=== PATIENT | male | born 1935 | race Caucasian/White ===

== ENCOUNTER 2018-08-10 21:24 | Inpatient (IN) | payer MEDICARE ==
[~2018-08-10] VITALS: Ht 182.9 cm; Wt 92.5 kg
[~2018-08-10 21:24] MED LIST: ABAT250V; ACET650SUP PR; ALBU.083IS IH; ALBU90OI6 INH; ALBUIS INH; AMOCLA875 PO; ASPI81CH PO; ATOR20 PO; BUDE6HFA INH; CAPSAICIN 0.025%; CILO100 PO; CLIN150 PO; CLOP75 PO; Carbidopa-Levo1 EACH PO; DIGO.125 PO; ENOX100I SUBQ; FURO20 PO; HYDCHL25 PO; Inderal 20 mg T20 MG PO; LEVCAR10 PO; LEVSOD150 PO; LOSA50 PO; METO25; METO25ER PO; METO50 PO; MORPHINE; MUPI2TO TOP; Norco 10-325 T1 EACH PO; POTCHL10ER PO; PROP10 PO; RANI150 PO; SALS500 PO; Symbicort 16010.2 GM INH; TIOT18 IH; TIOT18 INH; VANICREAM; WARF5 PO; XARELTO10 MG PO; XARELTO20 MG; XARELTO20 MG PO; ZOFRAN INJ; ZOLP5 PO
[2018-08-10 22:07] LABS: BASOPHILS ABSOLUTE AUTO 0.02 K/mm3 (0.00-0.23); BASOPHILS PERCENT AUTO 0 % (0-2); EOSINOPHILS ABSOLUTE AUTO 0.04 K/mm3 (0.00-0.68); EOSINOPHILS PERCENT AUTO 1 % (0-6); Hematocrit 36.3 % (37.0-53.0); Hemoglobin 11.3 g/dL (13.5-17.5); IMMATURE GRAN ABSOLUTE AUTO 0.02 K/mm3 (0.00-0.10); IMMATURE GRAN PERCENT AUTO 0 % (0-1); LYMPHOCYTES ABSOLUTE AUTO 0.38 K/mm3 (0.84-5.20); LYMPHOCYTES PERCENT AUTO 5 % (21-46); MONOCYTES ABSOLUTE AUTO 0.64 K/mm3 (0.16-1.47); MONOCYTES PERCENT AUTO 8 % (4-13); Mean Corpuscular HGB 29.5 pg (26.0-34.0); Mean Corpuscular HGB Conc 31.1 g/dL (31.5-36.5); Mean Corpuscular Volume 95 fL (80-100); Mean Platelet Volume 9.1 fL (9.1-12.4); NEUTROPHILS ABSOLUTE AUTO 6.68 K/mm3 (1.96-9.15); NEUTROPHILS PERCENT AUTO 86 % (41-73); Platelet Count 174 K/mm3 (150-400); RDW Coefficient Variation 14.7 % (11.7-14.2); RDW Standard Deviation 50.9 fL (35.1-46.3); Red Blood Cell Count 3.83 M/mm3 (4.30-5.90); White Blood Cell Count 7.78 K/mm3 (4.00-11.30)
[2018-08-10 22:44] LABS: Alanine Aminotransfer (ALT/SGP 15 U/L (12-78); Albumin, Blood 3.3 g/dL (3.4-5.0); Albumin/Globulin Ratio 0.8 (0.8-1.8); Alk Phos 94 U/L (50-136); Anion Gap 7 mmol/L (6-16); Aspartate Aminotrans (AST/SGOT 23 U/L (12-37); Bilirubin, Total 0.7 mg/dL (0.1-1.0); Blood Urea Nitrogen 13 mg/dL (8-24); Bun/Creatinine Ratio 17.5 (12.0-20.0); CO2, Blood 29 mmol/L (21-32); Calcium, Blood 8.9 mg/dL (8.5-10.1); Chloride, Blood 99 mmol/L (98-108); Creatinine, Blood 0.74 mg/dL (0.60-1.20); Globulin, Blood 4.3 g/dL (2.2-4.0); Glomerular Filtration Rate >60 (60-); Glucose, Blood 105 mg/dL (70-99); Potassium, Blood 4.3 mmol/L (3.5-5.5); Sodium, Blood 135 mmol/L (136-145); Total Protein, Blood 7.6 g/dL (6.4-8.2); Troponin I 0.017 ng/mL (0.000-0.040)
[2018-08-10 23:54] LABS: International Normalized Ratio 1.45; Prothrombin Time Results 14.9 Sec (9.7-11.5)
[2018-08-11] MEDS ORDERED: ALLO300 PO (01:59)
[2018-08-11] MEDS ORDERED: VITAMIN D3400 UNIT PO (02:01)
[2018-08-11] MEDS ORDERED: FURO20 PO (02:02)
[2018-08-11] MEDS ORDERED: METO100ER PO (02:02)
[2018-08-11] MEDS ORDERED: LIDOCAINE1 EACH TOP (02:03)
[2018-08-11] MEDS ORDERED: ONE DAILY COMP1 EACH PO (02:06)
[2018-08-11] MEDS ORDERED: POTCHL10ER PO (02:07)
--- NOTE | 2018-08-11 06:33 | NUR ---
SHIFT SUMMARY PT RESTING IN ROOM COMFORTABLY. NO ACUTE CHANGES IN STATUS SINCE PT ARRIVAL TO UNIT. RESP EVEN UNLABORED ON 6L HUMIDIFIED NC. DENIES CP, NO SOB AT REST. WOUNDS TO BLE DRESSED WITH NONADHEARENT PADS AND KERLEX. PT VERY EEK. CALLS APPROPRIATELY. CALL LIGHT WITHIN REACH OF PT.
--- NOTE | 2018-08-11 08:49 | NUR ---
AM NOTE. ASSUMED CARE OF PT APROX 1900, PT IS A&Ox4, PLEASENT AND COOPERATIVE WITH CARE. PT WAS ADMITTED DUE TO RESP FAILURE W/HYPOXIA. PT IS CURRENTLY ON 7L HIGH FLOW NC WITH SATS AT 93%, RESPIRATIONS ARE EVEN AND UNLABORED AT THIS TIME. TELE INTACT, AFIB IN THE 90'S PER CRITICAL CARE NURSE SPECIALIST, PT'S BP 99/56, PT'S AM METOPROLOL WAS HELD. TRACE EDEMA NOTED TO THE PT'S BLLE, PT HAS CHRONIC WOUNDS TO BLLE WELL, THESE ARE BEING TREATED AT THE [facility]. L/S COARSE AND WHEEZES T/O AND DIM IN THE BASES. BT PRESENT AND HYPERACTIVE, ABD IS SOFT AND NONTENDER TO PALP. CALL LIGHT IN REACH, BED IS LOCKED AND LOW WILL CONTINUE TO MONITOR.
[2018-08-11 10:12] LABS: Hematocrit 35.6 % (37.0-53.0); Hemoglobin 11.3 g/dL (13.5-17.5); Mean Corpuscular HGB Conc 31.7 g/dL (31.5-36.5); Mean Platelet Volume 9.4 fL (9.1-12.4); Platelet Count 172 K/mm3 (150-400); RDW Coefficient Variation 14.7 % (11.7-14.2); RDW Standard Deviation 49.1 fL (35.1-46.3)
[2018-08-11 10:14] LABS: Adenovirus Not Detected (NOT DETECT); Coronavirus 229E Not Detected (NOT DETECT); Coronavirus HKU1 Not Detected (NOT DETECT); Coronavirus NL63 Not Detected (NOT DETECT); Coronavirus OC43 Not Detected (NOT DETECT); Human Metapneumovirus Not Detected (NOT DETECT); Human Rhinovirus/Enterovirus Not Detected (NOT DETECT); Influenza A Not Detected (NOT DETECT); Influenza A/2009-H1 Not Detected (NOT DETECT); Influenza A/H1 Not Detected (NOT DETECT); Influenza A/H3 Not Detected (NOT DETECT)
[2018-08-11 10:14] LABS: Mean Corpuscular Volume 91 fL (80-100)
[2018-08-11 10:15] LABS: Bordetella pertussis Not Detected (NOT DETECT); Chlamydophila pneumoniae Not Detected (NOT DETECT); Influenza B Not Detected (NOT DETECT); Mycoplasma pneumoniae Not Detected (NOT DETECT); Parainfluenza Virus 1 Not Detected (NOT DETECT); Parainfluenza Virus 2 Not Detected (NOT DETECT); Parainfluenza Virus 3 Not Detected (NOT DETECT); Parainfluenza Virus 4 Not Detected (NOT DETECT); Respiratory Syncytial Virus Not Detected (NOT DETECT)
[2018-08-11 10:36] LABS: Alanine Aminotransfer (ALT/SGP 10 U/L (12-78); Albumin, Blood 3.1 g/dL (3.4-5.0); Albumin/Globulin Ratio 0.7 (0.8-1.8); Alk Phos 80 U/L (50-136); Anion Gap 13 mmol/L (6-16); Aspartate Aminotrans (AST/SGOT 24 U/L (12-37); Blood Urea Nitrogen 12 mg/dL (8-24); Bun/Creatinine Ratio 16.2 (12.0-20.0); CO2, Blood 22 mmol/L (21-32); Calcium, Blood 8.8 mg/dL (8.5-10.1); Chloride, Blood 100 mmol/L (98-108); Creatinine, Blood 0.74 mg/dL (0.60-1.20); Globulin, Blood 4.2 g/dL (2.2-4.0); Glomerular Filtration Rate >60 (60-); Glucose, Blood 192 mg/dL (70-99); Potassium, Blood 4.7 mmol/L (3.5-5.5); Sodium, Blood 135 mmol/L (136-145); Total Protein, Blood 7.3 g/dL (6.4-8.2)
--- NOTE | 2018-08-11 14:47 | NUR ---
REPORT REC'D FROM BUSTER HARDING. PT UP IN CHAIR WATCHING TV. SCHED MED GIVEN. PT STATES SHOULD BE BACK SOON WITH HIS HEARING AIDS. C0NT TO MONITOR.
--- NOTE | 2018-08-11 17:52 | NUR ---
Shift Summary Assumed care of pt at approx 1600 after receiving report from Shakira GOINS. Pt currently on 5L O2 NC. Denies any SOB at this time. Moist cough heard. Tele shows afib in the low 100's. Pt denies any acute complaints or events t/o the shift. Currently resting in bed with call light within reach. Denies any further questions, complaints or requests at this time. Will continue to monitor until report is given to erum GOINS.
[2018-08-12 03:46] LABS: BASOPHILS PERCENT AUTO 0 % (0-2); EOSINOPHILS PERCENT AUTO 0 % (0-6); Hematocrit 30.1 % (37.0-53.0); Hemoglobin 9.3 g/dL (13.5-17.5); IMMATURE GRAN ABSOLUTE AUTO 0.01 K/mm3 (0.00-0.10); IMMATURE GRAN PERCENT AUTO 0 % (0-1); LYMPHOCYTES PERCENT AUTO 4 % (21-46); MONOCYTES ABSOLUTE AUTO 0.15 K/mm3 (0.16-1.47); MONOCYTES PERCENT AUTO 3 % (4-13); Mean Corpuscular HGB Conc 30.9 g/dL (31.5-36.5); Mean Corpuscular Volume 94 fL (80-100); Mean Platelet Volume 9.3 fL (9.1-12.4); NEUTROPHILS ABSOLUTE AUTO 4.37 K/mm3 (1.96-9.15); NEUTROPHILS PERCENT AUTO 92 % (41-73); Platelet Count 112 K/mm3 (150-400); RDW Coefficient Variation 14.6 % (11.7-14.2); RDW Standard Deviation 50.9 fL (35.1-46.3); Red Blood Cell Count 3.21 M/mm3 (4.30-5.90); White Blood Cell Count 4.73 K/mm3 (4.00-11.30)
[2018-08-12 04:07] LABS: Alanine Aminotransfer (ALT/SGP 12 U/L (12-78); Albumin, Blood 2.9 g/dL (3.4-5.0); Albumin/Globulin Ratio 0.8 (0.8-1.8); Alk Phos 61 U/L (50-136); Anion Gap 9 mmol/L (6-16); Aspartate Aminotrans (AST/SGOT 17 U/L (12-37); Bilirubin, Total 0.9 mg/dL (0.1-1.0); Blood Urea Nitrogen 20 mg/dL (8-24); Bun/Creatinine Ratio 25.1 (12.0-20.0); CO2, Blood 26 mmol/L (21-32); Chloride, Blood 100 mmol/L (98-108); Globulin, Blood 3.5 g/dL (2.2-4.0); Glomerular Filtration Rate >60 (60-); Glucose, Blood 140 mg/dL (70-99); Magnesium, Blood 1.5 mg/dL (1.6-2.4); Potassium, Blood 4.5 mmol/L (3.5-5.5); Sodium, Blood 135 mmol/L (136-145); Total Protein, Blood 6.4 g/dL (6.4-8.2)
--- NOTE | 2018-08-12 05:51 | NUR ---
SHIFT SUMMARY: PATIENT COUGH BECOMING MORE PRODUCTIVE, PATIENT USING FLUTTER VALVE AND STATING HE FEELS IT HELPS HIM WITH STRONGER COUGHING. VSS, CALL LIGHT WITHIN REACH, BED LOW AND LOCKED, WBC'S IMPROVING.
--- NOTE | 2018-08-12 08:05 | NUR ---
Assumed Care: Assumed care of pt at approx 0700. VSS. In no apparent sign of distress. Pt is A&Ox4. See shift assessment for detailed assessment. Pt receiving breathing treatment when entering room. Moved to chair once completed for breakfast. Pt asking if he will be allowed to go home today. States that dressings to BLE were changed yesterday. Pt denies any acute complaints or requests at this time. Will continue to monitor.
--- NOTE | 2018-08-12 12:55 | NUR ---
ECHOCARDIOGRAM COMPLETE
--- NOTE | 2018-08-12 18:18 | NUR ---
Shift Summary No acute changes since initial shift assessment. VSS. In no apparent sign of distress. Pt is A&Ox4. Calls appropriately and repositions self. Denies any pain at this time. Pt has remained on 6L o2 NC. Reports that breathing is about the same t/o the shift and has not had any respiratory distress or acute events t/o the shift. Pt denies any acute events or complaints t/o the shift. No acute events on tele - Afib in the 110's at this time. Tolerated shower well today. Pt has been up to chair for meals. C/o dry nose and noticed some blood after blowing nose. Pt currently resting in bed with call light within reach. Denies any further questions, complaints or requests at this time. Will continue to monitor until report is given to erum GOINS.
--- NOTE | 2018-08-13 05:34 | NUR ---
SHIFT SUMMARY: PATIENT COUGH VERY PRODUCTIVE, VSS, NO ISSUES NOTED OTHER THAN INTERRUPTED SLEEP D/T COUGH. CALL LIGHT WITHIN REACH, BED LOW AND LOCKED.
--- NOTE | 2018-08-13 08:05 | NUR ---
Assumed Care: Assumed care of pt at approx 0700. VSS. In no apparent sign of distress. Pt is A&Ox4. Calls appropriately and repositions self. Pt states that he is feeling much better this AM, and is optimistic that he might potentially discharge home tomorrow. Sitting up and eating breakfast at this time. Denies any acute complaints or events this AM. See shift assessment for detailed assessment. Will continue to monitor. Call light within reach and bed in low position.
--- NOTE | 2018-08-13 18:12 | NUR ---
Shift Summary No acute changes since initial shift assessment. VSS. In no apparent sign of distress. Pt has remained on 7L O2 NC today and still becomes dyspnic with exertion. Pt repositions self. Calls appropriately. Wheezes in lungs are more mild and improved t/o the day. No acute changes or events on tele. Pt deneis any acute complaints or events t/o the shift. Currently sitting up in chair eating dinner. Declined shower today. Will continue to monitor until report is given to erum GOINS.
--- NOTE | 2018-08-13 22:20 | NUR ---
PCU NIGHTSHIFT ASSUMED CARE OF PT APPROX. 1900. PT A&O X4. ASSESSMENT COMPLETED. VITAL SIGNS STABLE. HEART RHYTHM A. FIB IN 100'S. 7L OXYGEN IN PLACE VIA N.C. WITH SATS IN 90'S PT DENIES SOB AT THIS TIME. BLE SKIN WARM AND RED. BANAGED IN PLACE BILATERAL FEET. PT AND PREVIOUS RN REPORT THSE BANADAGES CHANGES THIS EVENING 08/13. PULSES FAINT BILAT FEET AND PT REPORTS N&T IN BLE AND REPORTS THIS TO BE CHRONIC. PT UP IN CHAIR THIS ENENING. AFTER TAKING EVENING MEDICAITONS PT USE FWW AND ONE PERSON ASSIST BACK TO BED AND TOLERATED WELL. PT REPORTS BEING LESS SHORT OF BREATH WITH THIS THAN PREVIOUS TIMES. BED IN LOW POSITION, CALL LIGHT IN REACH AND PT DENIES ANY NEEDS AT THIS TIME. WILL CONTINUE TO MONITOR.
[2018-08-14 03:52] LABS: BASOPHILS PERCENT AUTO 0 % (0-2); EOSINOPHILS PERCENT AUTO 0 % (0-6); Hematocrit 28.5 % (37.0-53.0); Hemoglobin 8.8 g/dL (13.5-17.5); IMMATURE GRAN ABSOLUTE AUTO 0.02 K/mm3 (0.00-0.10); IMMATURE GRAN PERCENT AUTO 1 % (0-1); LYMPHOCYTES ABSOLUTE AUTO 0.12 K/mm3 (0.84-5.20); LYMPHOCYTES PERCENT AUTO 3 % (21-46); MONOCYTES ABSOLUTE AUTO 0.13 K/mm3 (0.16-1.47); MONOCYTES PERCENT AUTO 4 % (4-13); Mean Corpuscular HGB 29.1 pg (26.0-34.0); Mean Corpuscular HGB Conc 30.9 g/dL (31.5-36.5); Mean Corpuscular Volume 94 fL (80-100); Mean Platelet Volume 9.5 fL (9.1-12.4); NEUTROPHILS ABSOLUTE AUTO 3.27 K/mm3 (1.96-9.15); NEUTROPHILS PERCENT AUTO 92 % (41-73); Platelet Count 110 K/mm3 (150-400); RDW Coefficient Variation 14.5 % (11.7-14.2); RDW Standard Deviation 50.3 fL (35.1-46.3); Red Blood Cell Count 3.02 M/mm3 (4.30-5.90); White Blood Cell Count 3.54 K/mm3 (4.00-11.30)
[2018-08-14 04:16] LABS: Alanine Aminotransfer (ALT/SGP 13 U/L (12-78); Albumin, Blood 3.1 g/dL (3.4-5.0); Albumin/Globulin Ratio 0.9 (0.8-1.8); Alk Phos 54 U/L (50-136); Anion Gap 10 mmol/L (6-16); Aspartate Aminotrans (AST/SGOT 34 U/L (12-37); Bilirubin, Total 0.9 mg/dL (0.1-1.0); Blood Urea Nitrogen 26 mg/dL (8-24); Bun/Creatinine Ratio 29.3 (12.0-20.0); CO2, Blood 31 mmol/L (21-32); Chloride, Blood 98 mmol/L (98-108); Creatinine, Blood 0.89 mg/dL (0.60-1.20); Globulin, Blood 3.5 g/dL (2.2-4.0); Glomerular Filtration Rate >60 (60-); Glucose, Blood 125 mg/dL (70-99); Magnesium, Blood 1.6 mg/dL (1.6-2.4); Potassium, Blood 3.6 mmol/L (3.5-5.5); Sodium, Blood 139 mmol/L (136-145); Total Protein, Blood 6.6 g/dL (6.4-8.2)
--- NOTE | 2018-08-14 05:41 | NUR ---
SHIFT SUMMARY PT PLEASANT, COOPERATIVE AND COOPERATIVE. PT REMAINS A&O X4. VITAL SIGNS STABLE. HEART RHYTHM REMAINS A. FIB WITH HEART RATE AROUND 100'S. PT ASSESSMENT FINDINGS REMAIN UNCHANGED FROM START OF SHIFT. PT REMAINED IN BED FOR DURATION OF SHIFT. PT DENIES SHORTNESS OF BREATH. PT USES URINAL NEEDED. BED IN LOW POSTION, CALL LIGHT IN REACH AND PT DENIES ANY NEEDS AT THIS TIME.
--- NOTE | 2018-08-14 06:04 | NUR ---
ADDITION TO SHIFT SUMMARY 7L OXYGEN VIA HIGH FLOW REMAINS IN PLACE, WITH SATS 94-96. PT DENIES ANY NEEDS WILL CONTINUE TO MONITOR UNTIL HANDOFF TO DAYSHIFT RN.
--- NOTE | 2018-08-14 13:04 | NUR ---
Charlie has been out of bed,sitting up in a chair since breakfast time. He has been cheerful, without complaints, and states that he is feeling much better. States that he will probably get to go home tomorrow. Dysnpea with exertion, but able to stand and use the bedside commode, and talk in full sentences while at rest sitting up in the chair during his meals. His oxygen was weaned from 7 l/min to 6 l/min at 11:30 am.
--- NOTE | 2018-08-14 18:35 | NUR ---
summary Today oxygen was able to be titrated down to 5 l/min, n.c. delivery. The pt has been using his flutter valve, and coughing frequently, but having difficulty expectorating. Lung sounds noted: crackles and wheezing, diminished throughout except when auscultated posteriorly in bases. Has been sitting up in the chair all day, occasionally elevating his legs on the footstool over 2 pillows. Good appetite, voiding and also had a small bowel movement as well.
--- NOTE | 2018-08-14 22:22 | NUR ---
PCU NIGHTSHIFT ASSUMED CARE OF PT APPROX. 1900. PT A&O X4. ASSESSMENT COMPLETED. VITAL SIGNS STABLE. HEART RATE RHYTHM A. FIB. WITH HEART RATE 100'S-115. EDEMA BLE +2. NUMBNESS AND TINGLING BLE AND BILAT. BELOW THEN KNEE SKIN IS REDDENED AND WARM TO TOUCH. DRESSING REMAIN IN PLACE ON ULCERS ON BILAT FEET. DAYSHIFT RN REPORTS CHANGING THESE 08/14/18. PT UP IN CHAIR AT BEGININNG OF SHIFT. REMAINED HERE UNTIL AFTER RECIEVING EVENING MEDICATIONS. THEN PT WAS ABLE TO AMBULATE TO BED W/ FWW AND ONE PERSON ASSIST. PT BACK IN BED. BED IN LOW POSITION, CALL LIGHT IN REACH AND PT DENIES ANY NEEDS AT THIS TIME. WILL CONTINUE TO MONITOR.
[2018-08-15 04:21] LABS: BASOPHILS PERCENT AUTO 0 % (0-2); EOSINOPHILS PERCENT AUTO 0 % (0-6); Hematocrit 29.3 % (37.0-53.0); Hemoglobin 8.9 g/dL (13.5-17.5); IMMATURE GRAN ABSOLUTE AUTO 0.01 K/mm3 (0.00-0.10); IMMATURE GRAN PERCENT AUTO 0 % (0-1); LYMPHOCYTES ABSOLUTE AUTO 0.16 K/mm3 (0.84-5.20); LYMPHOCYTES PERCENT AUTO 5 % (21-46); MONOCYTES ABSOLUTE AUTO 0.33 K/mm3 (0.16-1.47); MONOCYTES PERCENT AUTO 10 % (4-13); Mean Corpuscular HGB 28.7 pg (26.0-34.0); Mean Corpuscular HGB Conc 30.4 g/dL (31.5-36.5); Mean Corpuscular Volume 95 fL (80-100); Mean Platelet Volume 9.3 fL (9.1-12.4); NEUTROPHILS ABSOLUTE AUTO 2.95 K/mm3 (1.96-9.15); NEUTROPHILS PERCENT AUTO 86 % (41-73); Platelet Count 112 K/mm3 (150-400); RDW Coefficient Variation 14.3 % (11.7-14.2); RDW Standard Deviation 49.7 fL (35.1-46.3); White Blood Cell Count 3.45 K/mm3 (4.00-11.30)
[2018-08-15 04:42] LABS: Alanine Aminotransfer (ALT/SGP 16 U/L (12-78); Albumin, Blood 3.1 g/dL (3.4-5.0); Albumin/Globulin Ratio 0.9 (0.8-1.8); Alk Phos 49 U/L (50-136); Anion Gap 8 mmol/L (6-16); Aspartate Aminotrans (AST/SGOT 38 U/L (12-37); Bilirubin, Total 0.9 mg/dL (0.1-1.0); Blood Urea Nitrogen 27 mg/dL (8-24); Bun/Creatinine Ratio 31.2 (12.0-20.0); CO2, Blood 35 mmol/L (21-32); Chloride, Blood 97 mmol/L (98-108); Creatinine, Blood 0.87 mg/dL (0.60-1.20); Globulin, Blood 3.4 g/dL (2.2-4.0); Glomerular Filtration Rate >60 (60-); Glucose, Blood 120 mg/dL (70-99); Magnesium, Blood 1.6 mg/dL (1.6-2.4); Potassium, Blood 3.2 mmol/L (3.5-5.5); Sodium, Blood 140 mmol/L (136-145); Total Protein, Blood 6.5 g/dL (6.4-8.2)
--- NOTE | 2018-08-15 05:34 | NUR ---
SHIFT SUMMARY PT PLEASANT, COOPERATIVE AND USES CALL LIGHT APPROPRIATELY. PT REMAINS A&O X4. VITAL SIGNS STABLE. 5L OXYGEN VIA N.C. REMAINS IN PLACE WITH SATS IN 90'S. HEART RHYTHM REMAINS A. FIB WITH HEART RATE 100-115. PT ASSESSMENT FINDINGS REMAIN UNCHANGED FROM START OF SHIFT. PT WAS ABLE TO REST FOR MOST OF SHIFT. PT DENIES SHORTNESS OF BREATH. PT USES URINAL NEEDED. BED IN LOW POSTION, CALL LIGHT IN REACH AND PT DENIES ANY NEEDS AT THIS TIME. WILL CONTINUE TO MONITOR UNTIL HAND OFF TO DAYSHIFT RN.
--- NOTE | 2018-08-15 09:44 | NUR ---
WOUND CARE COMPLETED: Old dressings were removed. Old serous drainage noted dried on alginate dressings of right leg, pedal surface, left foot toes, and left leg lateral surface. Amount of drainage noted was small. Wounds were cleaned with skintegrity, patted dry with sterile 4x4 gauze. Alginate rope was applied in between the toes of the left foot. Alginate pads were also applied to the ulcer of the right foot pedal surface and left leg lateral surface. All areas were secured with kerlix and then with tubular stockinette. Bariatric non skid socks were then put back on the pt's feet. He states no pain other than the burning (chronic) of his lower legs, for which lidocaine ointment was applied before the new dressings were applied.
--- NOTE | 2018-08-15 09:50 | NUR ---
Dr. Douglass here, explaining very well to the patient his diagnosis, the treatment plan, and discharge instructions. Pt verbalized understanding.
[2018-08-15] MEDS ORDERED: METO25ER PO (10:58)
[2018-08-15] MEDS ORDERED: FAMO20 PO (11:00)
[2018-08-15] MEDS ORDERED: GUAI600T33 PO (11:03)
[2018-08-15] MEDS ORDERED: DELTASONE20 MG PO (11:04)
[2018-08-15] MEDS ORDERED: SACC250C PO (11:05)
[2018-08-15] MEDS ORDERED: Augmentin 875-1 EACH PO (11:06)
[2018-08-15] MEDS ORDERED: ALBU3IS INH (11:07)
[2018-08-15] MEDS ORDERED: FURO20 PO (12:21)
[2018-08-15] MEDS ORDERED: TORSE20 PO (12:32)
== END 2018-08-15 13:13 | disposition home or self-care (01) | DRG 871 ==
LOC: ER 21:24 → PCU 08-11 01:12
PROVIDERS: Emergency Medicine; Internal Medicine; ADMIT Internal Medicine
DX: A41.9 Sepsis, unspecified organism (principal); J69.0 Pneumonitis due to inhalation of food and vomit; J96.21 Acute and chronic respiratory failure with hypoxia; I50.33 Acute on chronic diastolic (congestive) heart failure; J96.22 Acute and chronic respiratory failure with hypercapnia; J44.1 Chronic obstructive pulmonary disease with (acute) exacerbation; R78.81 Bacteremia; J44.0 Chronic obstructive pulmonary disease with (acute) lower respiratory infection; L03.115 Cellulitis of right lower limb; A28.0 Pasteurellosis; J20.9 Acute bronchitis, unspecified; I27.29 Other secondary pulmonary hypertension; K21.9 Gastro-esophageal reflux disease without esophagitis; G20 Parkinson's disease; I10 Essential (primary) hypertension; Z99.81 Dependence on supplemental oxygen; Z79.01 Long term (current) use of anticoagulants; I48.0 Paroxysmal atrial fibrillation; M10.9 Gout, unspecified
CPT/HCPCS: 36415; 71045; 71260; 80053; 83605; 83735; 83880; 84145; 84484; 85025; 85027; 85610; 85730; 87040; 87077; 87486; 87581; 87633; 87798; 92526; 92610; 93005; 93010; 93306; 94640; 94644; 94760; 94762; 96365-59; 96366-59; 96375-59; 97110; 97162; 97166; 97530; 99285-25; J1100; J1940; J1956; J2543; J2930; J3475; Q9967

== ENCOUNTER 2018-11-24 23:08 | Inpatient (IN) | payer MEDICARE ==
[~2018-11-24] VITALS: Ht 182.9 cm; Wt 96.8 kg
[~2018-11-24 23:08] MED LIST changes: +ALBU3IS INH; +ALLO300 PO; +Augmentin 875-1 EACH PO; +DELTASONE20 MG PO; +FAMO20 PO; +GUAI600T33 PO; +LIDOCAINE1 EACH TOP; +METO100ER PO; +ONE DAILY COMP1 EACH PO; +SACC250C PO; +TORSE20 PO; +VITAMIN D3400 UNIT PO
[2018-11-24 23:21] LABS: BASOPHILS ABSOLUTE AUTO 0.03 K/mm3 (0.00-0.23); BASOPHILS PERCENT AUTO 0 % (0-2); EOSINOPHILS ABSOLUTE AUTO 0.01 K/mm3 (0.00-0.68); EOSINOPHILS PERCENT AUTO 0 % (0-6); Hematocrit 28.7 % (37.0-53.0); IMMATURE GRAN ABSOLUTE AUTO 0.04 K/mm3 (0.00-0.10); IMMATURE GRAN PERCENT AUTO 1 % (0-1); LYMPHOCYTES ABSOLUTE AUTO 0.32 K/mm3 (0.84-5.20); LYMPHOCYTES PERCENT AUTO 4 % (21-46); MONOCYTES ABSOLUTE AUTO 0.62 K/mm3 (0.16-1.47); MONOCYTES PERCENT AUTO 7 % (4-13); Mean Corpuscular HGB 28.7 pg (26.0-34.0); Mean Corpuscular HGB Conc 31.4 g/dL (31.5-36.5); Mean Corpuscular Volume 91 fL (80-100); Mean Platelet Volume 9.5 fL (9.1-12.4); NEUTROPHILS ABSOLUTE AUTO 7.32 K/mm3 (1.96-9.15); NEUTROPHILS PERCENT AUTO 88 % (41-73); Platelet Count 138 K/mm3 (150-400); RDW Coefficient Variation 13.8 % (11.7-14.2); RDW Standard Deviation 46.3 fL (35.1-46.3); Red Blood Cell Count 3.14 M/mm3 (4.30-5.90); White Blood Cell Count 8.34 K/mm3 (4.00-11.30)
[2018-11-24 23:39] LABS: Alanine Aminotransfer (ALT/SGP 15 U/L (12-78); Albumin/Globulin Ratio 0.8 (0.8-1.8); Alk Phos 57 U/L (50-136); Anion Gap 8 mmol/L (6-16); Aspartate Aminotrans (AST/SGOT 14 U/L (12-37); Bilirubin, Total 0.8 mg/dL (0.1-1.0); Blood Urea Nitrogen 17 mg/dL (8-24); Bun/Creatinine Ratio 13.9 (12.0-20.0); CO2, Blood 29 mmol/L (21-32); Calcium, Blood 8.7 mg/dL (8.5-10.1); Chloride, Blood 99 mmol/L (98-108); Creatinine, Blood 1.22 mg/dL (0.60-1.20); Globulin, Blood 3.6 g/dL (2.2-4.0); Glomerular Filtration Rate >60 (60-); Glucose, Blood 101 mg/dL (70-99); Potassium, Blood 3.6 mmol/L (3.5-5.5); Sodium, Blood 136 mmol/L (136-145); Total Protein, Blood 6.6 g/dL (6.4-8.2); Troponin I 0.067 ng/mL (0.000-0.040)
[2018-11-25 05:58] LABS: Hematocrit 26.7 % (37.0-53.0); Hemoglobin 8.3 g/dL (13.5-17.5); Mean Corpuscular HGB Conc 31.1 g/dL (31.5-36.5); Mean Corpuscular Volume 90 fL (80-100); Mean Platelet Volume 9.9 fL (9.1-12.4); Platelet Count 111 K/mm3 (150-400); RDW Coefficient Variation 13.7 % (11.7-14.2); RDW Standard Deviation 45.4 fL (35.1-46.3); Red Blood Cell Count 2.96 M/mm3 (4.30-5.90); White Blood Cell Count 5.22 K/mm3 (4.00-11.30)
[2018-11-25] MEDS ORDERED: LOSA50 PO (06:04)
[2018-11-25 06:14] LABS: Albumin, Blood 2.7 g/dL (3.4-5.0); Albumin/Globulin Ratio 0.8 (0.8-1.8); Bilirubin, Total 0.6 mg/dL (0.1-1.0); Bun/Creatinine Ratio 13.6 (12.0-20.0); Calcium, Blood 8.5 mg/dL (8.5-10.1); Creatinine, Blood 1.32 mg/dL (0.60-1.20); Globulin, Blood 3.4 g/dL (2.2-4.0); Potassium, Blood 3.8 mmol/L (3.5-5.5); Total Protein, Blood 6.1 g/dL (6.4-8.2)
--- NOTE | 2018-11-25 08:35 | NUR ---
ASSUMED CARE PT ADMITTED TO ICU 13 AFTER REPORT FROM BUSTER PATEL.
--- NOTE | 2018-11-25 08:36 | NUR ---
MD VISIT DR. CASTILLO IN. ATTEMPTED TO REDUCE LEFT HIP WITHOUT SUCCESS. BP IS LOW. WILL COME BACK AFTER HE IS FINISHED WITH A SURGERY TO ATTEMPT AGAIN.
--- NOTE | 2018-11-25 08:39 | NUR ---
WOUNDS ON LEFT LEG AND FOOT ARE ODOROUS. WILL SWAB FOR CULTURES, TAKE PICTURES AND REDRESS. DR. NEFF NOTIFIED OF SUSPECTED SEPSIS.
--- NOTE | 2018-11-25 10:54 | NUR ---
MD VISIT DR. CASTILLO IN AGAIN TO ATTEMPT TO REDUCE HIP
--- NOTE | 2018-11-25 11:07 | NUR ---
DR. CALI IN FOR SEDATION
--- NOTE | 2018-11-25 11:36 | NUR ---
ANAMARIA TORREZ. ORDERED BOLUS, FLUMAZENIL AND NARCAN TO REVERSE SEDATION AFTER DR. CASTILLO WAS ABLE TO PUT THE HIP BACK IN IT'S SOCKET. PATIENT IS A&O NOW. BIOX 95% ON 3L OXYMIZER NC. CONTINUES HYPOTENSIVE
[2018-11-25 12:09] LABS: Source, Urine Catheter
[2018-11-25 12:13] LABS: Bilirubin, Urine Neg (Neg); Blood, Urine 1+ (Neg); Glucose Qualitative, Urine Neg (Neg); Ketones, Urine 1+ (Neg); Leukocyte Esterase, Urine 1+ (Neg); Nitrite, Urine Neg (Neg); Protein, Urine 3+ (Neg); Urobilinogen, Urine NORM (Normal)
[2018-11-25 12:19] LABS: Appearance, Urine Clear (Clear); Color, Urine Yellow (P-Yellow)
[2018-11-25 12:21] LABS: Hyaline Casts TNTC /lpf (0-2)
[2018-11-25 12:22] LABS: Bacteria Mod /hpf; Squamous Epithelial Cells Few /hpf (Few)
--- NOTE | 2018-11-25 14:52 | NUR ---
PATIENT SOUNDS WET AND BIOX IS DROPPING. HIFLOW NC PLACED AT 10L. CALLED DR. NEFF AND REC'D ORDERS FOR BIPAP AND TO CALL IF IT DOESN'T IMPROVE.
--- NOTE | 2018-11-25 15:07 | NUR ---
BIPAP PLACED BY BUSTER JOAQUIN. 03/03 45%
--- NOTE | 2018-11-25 16:33 | NUR ---
PATIENT TOLERATING BIPAP WELL AT 12/5, FIO2 45%. SLEEPING WITH MASK IN PLACE. NS TKO. BP HAS IMPROVED. ABDUCTION PILLOW BETWEEN LEGS.
--- NOTE | 2018-11-25 20:00 | NUR ---
RECEIVED HAND OFF FROM BUSTER HEATON USING SBAR DURING BEDSIDE REPORT. LYING IN SEMI FOWLERS WITH EYES OPEN. AAO X3, BRIGGS, FOLLOWS ALL COMMANDS. ORIENTED TO ROOM, CALL SYSTEM, AND POC, VOICES UNDERSTANDING. RESPIRATIONS EVEN AND UNLABOREDON O2 AT 10L/NC. LUNG SOUNDS DIMINISHED ON LEFT AND COARSE AND DIMINSHED ON LEFT. ABDOMEN SOFT AND NONDIOSTENDED. BOWEL SOUNDS PRESENT IN ALL QUADS. STATES LAST BM WAS, "JUST BEFORE THE AMBULANCE CAME TO GET ME." STATED THAT HE TOOK SOME KAOPECTATE D/T 3 CONSECUTIVE LOOSE BM'S. DENIES FURTHER LOOSE BM'S. INCONTINENT OF BOWEL AND BLADDER, WEARS DEPENDS AT HOME. HE IS WHEELCHAIR BOUND, BUT ABLE TO OCCASIONALLY AMBULATE WITH WALKER AND ASSISANCE. LEFT FA 18G PIV IS PATENT, FLUSHING WITH EASE WHILE INFUSING NA AT 10ML/HR AND ZOSYN AT 12.5ML/HR. RIGHT UPPER ARM SL 20G PIV IS PATENT. INCONTINENT OF BLADDER, WEARS DEPENDS. FLORES CATH WITH TEMPERATURE FUNCTION IS PATENT, DRAINAING CONCENTRATED KYLE URINE WITH SEDIMENT TO GRAVITY. BLE DUSKYNESS AND SCALING NOTED. BLE WRAPPED IN GUAZE DUE TO WOUNDS PRESENT, SEE PICS ON CHART. ABDUCTOR WEDGE BETWEEN LEGS WITH VELCRO SRTAPS IN PLACE. DENIES FURTHER NEEDS OR WANTS AT THIS TIME. SAFETY MEASURES IN PLACE. WILL CONTINUE TO MONITOR.
--- NOTE | 2018-11-25 20:30 | NUR ---
250ML FLUID CHALLENGE STARTED FOR HYPOTENSIVE EPISODE - BP OF 86/42 (MAP 54). DEINES PAIN, DISCOMFORT, OR ANY FURTHER SYMPTOMS OF HYPOTENSION. WILL CONTINUE TO MONITOR.
[2018-11-25 20:56] LABS: Adenovirus Not Detected (NOT DETECT); Bordetella pertussis Not Detected (NOT DETECT); Chlamydophila pneumoniae Not Detected (NOT DETECT); Coronavirus 229E Not Detected (NOT DETECT); Coronavirus HKU1 Not Detected (NOT DETECT); Coronavirus NL63 Not Detected (NOT DETECT); Coronavirus OC43 Not Detected (NOT DETECT); Human Metapneumovirus Not Detected (NOT DETECT); Human Rhinovirus/Enterovirus Not Detected (NOT DETECT); Influenza A Not Detected (NOT DETECT); Influenza A/2009-H1 Not Detected (NOT DETECT); Influenza A/H1 Not Detected (NOT DETECT); Influenza A/H3 Not Detected (NOT DETECT); Influenza B Not Detected (NOT DETECT); Mycoplasma pneumoniae Not Detected (NOT DETECT); Parainfluenza Virus 1 Not Detected (NOT DETECT); Parainfluenza Virus 2 Not Detected (NOT DETECT); Parainfluenza Virus 3 Not Detected (NOT DETECT); Parainfluenza Virus 4 Not Detected (NOT DETECT); Respiratory Syncytial Virus Not Detected (NOT DETECT)
--- NOTE | 2018-11-25 22:05 | NUR ---
SPOKE TO DR. CHRISTOPHE RODRIGEUZING BP. ORDERS RECEIVED FOR A SECOND 250ML FLUID CHALLENGE AND THEN TO CHANGE IVF TO 100ML/HR. WILL CONTINUE TO MONITOR RESPIRATORY STATUS FOR SIGNS AND SYMPTOMS OF FLUID OVERLOAD. SAFETY MEASURES IN PLACE. WILL CONTINUE TO MONITOR.
--- NOTE | 2018-11-25 22:54 | NUR ---
PLACED ON BIPAP AT CURRENT SETTINGS. ENSURED COMFORT AND SEAL. DEINES FURTHER NEEDS OR WANTS AT THIS TIME. SAFETY MEASURES IN PLACE. WILL CONTINUE TO MONITOR.
--- NOTE | 2018-11-26 | NUR ---
LYING IN SEMI FOWLERS WITH EYES CLOSED. OPENS EYES TO SPONTAINOUSLY. RESPIRATIONS EVEN AND UNLABORED ON O2 AT 10L/NC. DENIES PAIN OF DISCOMFORT AT THIS TIME. C/O NASAL CONGESTION, STATES THAT HE TAKES AFRIN AT HOME. WILL CALL MD FOR ORDER. DENIES FURTHER NEED OR WANTS AT THIS TIME. SAFETY MEASURES IN PLACE. WILL CONINUE TO MONITOR.
--- NOTE | 2018-11-26 00:30 | NUR ---
ORDER RECIEVED FOP AFRIN 2 SPRAYS NASLALLY DAILY. AWAINTING ORDER VERIFIICATION. WILL CONTINUE TO MONITOR.
[2018-11-26 03:19] LABS: BASOPHILS ABSOLUTE AUTO 0.02 K/mm3 (0.00-0.23); BASOPHILS PERCENT AUTO 1 % (0-2); EOSINOPHILS ABSOLUTE AUTO 0.06 K/mm3 (0.00-0.68); EOSINOPHILS PERCENT AUTO 1 % (0-6); Hematocrit 26.5 % (37.0-53.0); Hemoglobin 8.2 g/dL (13.5-17.5); IMMATURE GRAN ABSOLUTE AUTO 0.01 K/mm3 (0.00-0.10); IMMATURE GRAN PERCENT AUTO 0 % (0-1); LYMPHOCYTES PERCENT AUTO 7 % (21-46); MONOCYTES ABSOLUTE AUTO 0.44 K/mm3 (0.16-1.47); MONOCYTES PERCENT AUTO 10 % (4-13); Mean Corpuscular HGB 28.4 pg (26.0-34.0); Mean Corpuscular HGB Conc 30.9 g/dL (31.5-36.5); Mean Corpuscular Volume 92 fL (80-100); NEUTROPHILS ABSOLUTE AUTO 3.59 K/mm3 (1.96-9.15); NEUTROPHILS PERCENT AUTO 81 % (41-73); Platelet Count 105 K/mm3 (150-400); RDW Coefficient Variation 13.6 % (11.7-14.2); RDW Standard Deviation 46.5 fL (35.1-46.3); Red Blood Cell Count 2.89 M/mm3 (4.30-5.90); White Blood Cell Count 4.42 K/mm3 (4.00-11.30)
[2018-11-26 03:36] LABS: Anion Gap 5 mmol/L (6-16); Blood Urea Nitrogen 20 mg/dL (8-24); Bun/Creatinine Ratio 17.2 (12.0-20.0); CO2, Blood 27 mmol/L (21-32); Calcium, Blood 8.2 mg/dL (8.5-10.1); Chloride, Blood 104 mmol/L (98-108); Creatinine, Blood 1.16 mg/dL (0.60-1.20); Glomerular Filtration Rate >60 (60-); Glucose, Blood 91 mg/dL (70-99); Sodium, Blood 136 mmol/L (136-145)
--- NOTE | 2018-11-26 05:39 | NUR ---
SHIFT SUMMARY HAS HAD IMPROVED BP THIS SHIFT AFTER INCREASING HIS IVF AFTER TWO 250ML FLUID CHALLENGES WERE COMPLTED. LAST BP IS 96/51 WITH A MAP OF 66. HAS BEEN WOKEN SEVERAL TIMES DUE TO LOWER O2 SAT, WILL RETURN TO BASELINE WHEN REMINDED TO DEEP BREATHE. DENIES FURTHER NEEDS OR WANTS AT THIS TIME. SAFETY MEASURES IN PLACE. WILL GIVE HAND OFF TO ONCOMING SHIFT USING SBAR.
--- NOTE | 2018-11-26 06:05 | NUR ---
C/O CP 08/06 BUT REFUSED OFFER OF MEDS UNTIL NURSING REITERATED THAT MORPHINE INCREASES OXYGENATION. REFUSED OFFER FOR 5MG OF MORPHINE, BUT AGREED TO TAKE 2MG MORPHINE. WILL CONTINUE TO MONITOR.
--- NOTE | 2018-11-26 08:24 | NUR ---
PT A/O AND FEEDING SELF. ONLY NOTES SOME SORENESS IN HIPS. ABDUCTION PILLOW IS IN PLACE AND PT TOLERATING. PT HAS L HIP EDEMA MINIMAL NOTED IN R HIP. O2 IN PLACE NOTED AND PT DENIES SOB OR DISTRESS.
--- NOTE | 2018-11-26 09:23 | NUR ---
pt admitted to icu-10 VSS. NO CHEST PAIN. AMIO. GTT AT 1MG. PT IS IN NSR. AND SATING WELL ON RA AT 97%. GROUND SERVICE EQUIPMENT MECHANIC STAFF HERE AT 0905 TO PREP FOR CATH.
--- NOTE | 2018-11-26 12:43 | NUR ---
STATUS CALL TO DR NEFF RE LOW BP NOTED AND ELEVATED HR. PT REMAINS A/O BUT BP LOW AFTER LOPRESSOR FOR HR AND BOLUS STARTED INFUSING IN SEGMENTS AND EVALUATING LUNG SOUNDS. LUNGS REMAIN DIM. T/O AND O2 PRIOR. PT IS EATING AND COMPLYING WITH REQUEST TO EAT SLOW AND CONSENTRATE ON BREATHING.
--- NOTE | 2018-11-26 13:28 | NUR ---
PAATIENT COUGHS WHILE EATING. SAYS HE HAS A HARD TIME EATING WHILE TRYING TO BREATHE WITH HIS NOSE PLUGGED. SALINE, MOISTURIZER AND DECONGESTANT GIVEN. BIPAP MASK PLACED ON 05/04 45% BIOX 99%
--- NOTE | 2018-11-26 13:46 | NUR ---
PT RETURNED TO BIPAP AND LAYED BACK TO REST. PT BP REMEAINS SOMEWHAT SOFT AND BOLUS GIVEN. DR NEFF IN TO SEE AND ASSESS PT. HE IS EVALUATING THE WOUNDS FOR POSSIBLE INFECTION SOURSE.
--- NOTE | 2018-11-26 14:07 | NUR ---
MD VISIT DR. NEFF IN. MANUAL PRESSURES BY PALP COINCIDE WITH AUTO BILAT. CONTINUE FLUID CHALLENGES FOR BP
--- NOTE | 2018-11-26 17:54 | NUR ---
PT IS SETTING UP IN BED EATING AND HR HAS ELEVATED TO 125-135 RANGE AT THIS TIME. PT LEGS AND ARMS WERE REDRESSED AND CLEANED. PT IS NO HFNC WITH SATS MID 90 RANGE BUT POOR RESP RESERVE OBSERVED AND COACHED TO EAT AND DRINK SLOWLY TO MINIMIZE WOB AND SOB. PT HAS BEEN COUGHING UP SMALL AMOUNTS OF SPUTUM THIS PM OF LIGHT YELLOW.
--- NOTE | 2018-11-26 18:02 | NUR ---
PT IS ENCOURAGED TO REMAIN ON BIPAP WHICH IS AT 10/5 AND 30%. PT WOB AND SOB IS MUCH IMPORVED WITH RR 22-24 RANGE AND SATS NOTED.
--- NOTE | 2018-11-26 20:00 | NUR ---
RECEIVED HAND OFF FROM BUSTER PICHARDO USING SBAR DURING BEDSIDE REPORT. LYING IN SEMI FOWLERS WITH EYES OPEN. AAO X3, BRIGGS, FOLLOWS ALL COMMANDS. ORIENTED TO ROOM, CALL SYSTEM, AND POC, VOICES UNDERSTANDING. RESPIRATIONS EVEN AND UNLABORED ON O2 AT 10L/HIGH FLOW. LUNG SOUNDS DIMINISHED ON LEFT UPPER LOBE AND COARSE AND DIMINSHED IN REMIANING [place]. ABDOMEN SOFT AND NONDIOSTENDED. BOWEL SOUNDS PRESENT IN ALL QUADS. STATES LAST BM YESTURDAY. INCONTINENT OF BOWEL AND BLADDER, WEARS DEPENDS AT HOME. HE IS WHEELCHAIR BOUND, BUT ABLE TO OCCASIONALLY AMBULATE WITH WALKER AND ASSISANCE. LEFT FA 18G PIV IS PATENT, FLUSHING WITH EASE WHILE INFUSING NA AT 125ML/HR. RIGHT UPPER ARM SL 20G PIV IS PATENT. INCONTINENT OF BLADDER, WEARS DEPENDS. FLORES CATH WITH TEMPERATURE FUNCTION IS PATENT, DRAINAING CONCENTRATED KYLE URINE WITH SEDIMENT TO GRAVITY. BLE DUSKYNESS AND SCALING NOTED. BLE WRAPPED IN GUAZE DUE TO WOUNDS PRESENT, SEE PICS ON CHART. ABDUCTOR WEDGE BETWEEN LEGS WITH VELCRO SRTAPS IN PLACE. DENIES FURTHER NEEDS OR WANTS AT THIS TIME. SAFETY MEASURES IN PLACE. WILL CONTINUE TO MONITOR.
--- NOTE | 2018-11-26 21:30 | NUR ---
C/O PAIN IN LEFT HEEL AGAIN. PILLOW READJUSTED UNDER LEFT FOOT TO FLOAT HEELS. MEPILEX HEEL PROTECTOS PLACED FOR COMFORT TO BLE. SAFETY MEASURES IN PLACE. WILL CONTINUE TO MONITOR.
--- NOTE | 2018-11-27 06:43 | NUR ---
SHIFT SUMMARY HAS CONTINUED TO MAINTAIN BP ON THE LOW SIDE OF NORMAL. FINGER PROBE FOR O2 SAT HAS BEEN CHANGED D/T LOWER O2 SAT, HAS BEEN DOING BETTER SINCE THEN. DENIES FURTHER NEEDS OR WANTS AT THIS TIME. SAFETY MEASURES IN PLACE. WILL GIVE HAND OFF TO ONCOMING SHIFT USING SBAR.
--- NOTE | 2018-11-27 07:30 | NUR ---
ASSUMED CARE: PT RESTING QUIETLY IN BED, 6L NC. HR 90S-1TEENS, SBP IN 90S. DENIES FURTHER NEEDS OR CONCERNS
--- NOTE | 2018-11-27 09:42 | NUR ---
DR MCGEE CAME TO SEE PT AND STATES HE MAY TAKE PT TO ANGIO THIS AFTERNOON. STATES PT'S H/H DECREASING SO SUGGESTS HOLDING XARELTO UNTIL ANEMIA IS RESOLVED. DISCUSSED PLANS WITH DR SIMON WHO AGREES TO HOLD XARELTO, ALSO STATES TO CALL IF DARKENED STOOL IS NOTED. TECH IN ROOM PERFORMING DOPPLERS AT THIS TIME.
--- NOTE | 2018-11-27 14:04 | NUR ---
Echocardiogram completed.
--- NOTE | 2018-11-27 14:15 | NUR ---
PT TAKEN TO OIL DISTRIBUTOR TENDER AT THIS TIME
--- NOTE | 2018-11-27 16:14 | NUR ---
PT RETURNED FROM INFORMATION TECHNOLOGY ASSOCIATE AT 1550. RIGHT GROIN SITE SOFT, NONTENDER, NO SIGN OF BLEEDING OR OOZING. RIGHT WRIST WITH TR BAND IN PLACE, NO OOZING OR SIGN OF BLEEDING OR HEMATOMA NOTED AT THIS TIME. VSS. NO ACUTE NEEDS OR CONCERNS
[2018-11-27 18:11] LABS: Hemoglobin 9.3 g/dL (13.5-17.5)
--- NOTE | 2018-11-27 18:37 | NUR ---
SHIFT SUMMARY: PT RESTING QUIETLY IN BED, TILTED BUT REMAINS FLAT UNTIL 1949. MEDICATED X1 FOR PAIN. RADIAL AND GROIN SITES REMAIN WITHOUT OOZING OR HEMATOMAS. PLAN FOR 1 UNIT OF BLOOD AFTER STAT H AND H RESULT. NO ACUTE NEEDS OR CONCERNS AT THIS TIME.
--- NOTE | 2018-11-27 19:20 | NUR ---
ASSUME CARE:REPORT RECIEVED FROM OFF GING BUSTER POMPA. MONITOR INTACT SHOWING A FIB HEART RATE 100'S-120'S. DENIES DISCOMFORT. LUNGS CLEAR UPPER LOBES WITH DECREASED SOUNDS IN THE BASES SPO2 SPOT CHECKS 92-97% ABDOMEN SOFT WITH BOWEL SOUNDS.FLORES PATENT DRAINING KYLE URINE. WEDGE PILLOW BETWEEN LEGS TO STABLIZE L HIP. DRESSINGS INTACT TO R FOOT GEMTLE LOG ROLLING TO CHANGE POSITION. TR BAND SITE INTACT SOFT, GROIN SITE CLEAR SOFT INTACT CONTINUE TO MONITOR AND REPORT CHANGE IN PATIENT CONDITION,
[2018-11-28 03:44] LABS: BASOPHILS ABSOLUTE AUTO 0.04 K/mm3 (0.00-0.23); BASOPHILS PERCENT AUTO 1 % (0-2); EOSINOPHILS ABSOLUTE AUTO 0.13 K/mm3 (0.00-0.68); EOSINOPHILS PERCENT AUTO 3 % (0-6); Hematocrit 31.1 % (37.0-53.0); Hemoglobin 9.6 g/dL (13.5-17.5); IMMATURE GRAN ABSOLUTE AUTO 0.01 K/mm3 (0.00-0.10); IMMATURE GRAN PERCENT AUTO 0 % (0-1); LYMPHOCYTES ABSOLUTE AUTO 0.41 K/mm3 (0.84-5.20); LYMPHOCYTES PERCENT AUTO 10 % (21-46); MONOCYTES ABSOLUTE AUTO 0.51 K/mm3 (0.16-1.47); MONOCYTES PERCENT AUTO 12 % (4-13); Mean Corpuscular HGB 28.6 pg (26.0-34.0); Mean Corpuscular HGB Conc 30.9 g/dL (31.5-36.5); Mean Corpuscular Volume 93 fL (80-100); Mean Platelet Volume 9.8 fL (9.1-12.4); NEUTROPHILS ABSOLUTE AUTO 3.03 K/mm3 (1.96-9.15); NEUTROPHILS PERCENT AUTO 74 % (41-73); Platelet Count 144 K/mm3 (150-400); RDW Coefficient Variation 14.4 % (11.7-14.2); RDW Standard Deviation 48.7 fL (35.1-46.3); Red Blood Cell Count 3.36 M/mm3 (4.30-5.90); White Blood Cell Count 4.13 K/mm3 (4.00-11.30)
[2018-11-28 04:02] LABS: Albumin, Blood 2.7 g/dL (3.4-5.0); Anion Gap 6 mmol/L (6-16); Blood Urea Nitrogen 13 mg/dL (8-24); Bun/Creatinine Ratio 16.4 (12.0-20.0); CO2, Blood 26 mmol/L (21-32); Calcium, Blood 8.6 mg/dL (8.5-10.1); Chloride, Blood 109 mmol/L (98-108); Creatinine, Blood 0.79 mg/dL (0.60-1.20); Glomerular Filtration Rate >60 (60-); Glucose, Blood 112 mg/dL (70-99); Potassium, Blood 4.1 mmol/L (3.5-5.5); Sodium, Blood 141 mmol/L (136-145)
--- NOTE | 2018-11-28 06:08 | NUR ---
SHIFT SUMMARY: RESTS QUIETLY WHEN UNDISTURBED. MONITOR INTACT SHOWING A FIB. HEART RATE 90'S-110'S LUNG SOUNDS COARSE WITH MOIST LOOSE SOUNDING COUGH. ABDOMEN SOFT WITH BOWEL SOUNDS FOUR QUADS. FLORES PATENT DRAINING KYLE URINE. ABDUCTION PILLOW IN PLACE . LOG ROLL EVERY TWO HOURS. SIDE TO SIDE. DRESSINGS INTACT TO FEET AND BOTTOM. BIPAP 12/8 WITH 40% AT NIGHT SECONDARY TO DECREASING SATURATIONS. ENCOURAGED TO COUGH DEEP BREATHE.WHEN NOT ON BIPAP O2 AT 6L HIFLOW. SPO2 84-95% MEDICATED WITH FENTANYL ONE TIME THIS SHIFT. TR BAND SITE CLEAR WITH OCCULSIVE DRESSING INTACT GROIN SITE CLEAR. CONTINUE TO MONITOR AND REPORT CHANGE IN PATIENT CONDITION.
[2018-11-28 09:28] LABS: CHOL/HDL RATIO 3.2; Cholesterol 120 mg/dL (50-200); HDL Cholesterol 38 mg/dL (>39); LDL/HDL RATIO 1.6; Low Density Lipoprotein Chol 60 mg/dL (0-110); Triglycerides 111 mg/dL (30-160); Very Low Density Lipoprot Chol 22 mg/dL (6-32)
--- NOTE | 2018-11-28 10:30 | NUR ---
BEGINNING OF SHIFT Assumed care of pt at 0700. Bedside report recieved from Holli GOINS. Pt on 6 LPM NC at time of report. Pt A&O x 4; weak in all extremities, bedfast at this time. Immobilizer between legs to prevent patient from crossing legs. Lungs dim t/o. Pt required O2 titration up to 8 LPM to maintain O2 sats greater than 88%. Dr Tian and Dr Villarreal into see patient. Discussed anemia; as this was the reason cardiac stenting and following dual antiplatelet therapy was not done for the patient yesterday. Discussed GI consultation, however this service is not available until TuesdayDecember 01. Pt has not had any hematemesis, coffee-ground emesis, visible blood per rectum, or black tarry stools. Verbal orders from Dr Tian to discontinue xarelto. Dr Villarreal states plan for coronary angiogram today.
[2018-11-28 12:29] LABS: Stool Occult Blood Guaiac 1 Pos (Neg)
[2018-11-28 12:46] LABS: Adenovirus F 40/41 Not Detected (NOT DETECT); Astrovirus Not Detected (NOT DETECT); Campylobacter Sp Not Detected (NOT DETECT); Cryptosporidium Not Detected (NOT DETECT); Cyclospora Cayetanensis Not Detected (NOT DETECT); E. Coli O157 Not Detected (NOT DETECT); Entamoeba Histolytica Not Detected (NOT DETECT); Enteroaggregative E. coli-EAEC Not Detected (NOT DETECT); Enteropathogenic E. coli-EPEC Not Detected (NOT DETECT); Enterotoxigenic E. coli-ETEC Not Detected (NOT DETECT); Giardia Lamblia Not Detected (NOT DETECT); Norovirus GI/GII Not Detected (NOT DETECT); Plesiomonas Shigelloides Not Detected (NOT DETECT); Rotavirus A Not Detected (NOT DETECT); Salmonella Sp Not Detected (NOT DETECT); Sapovirus Not Detected (NOT DETECT); Shiga Toxin-prod E. coli-STEC Not Detected (NOT DETECT); Shigella/Enteroin E. coli-EIEC Not Detected (NOT DETECT); Vibrio Cholerae Not Detected (NOT DETECT); Vibrio Sp Not Detected (NOT DETECT); Yersinia Enterocolitica Not Detected (NOT DETECT)
--- NOTE | 2018-11-28 14:21 | NUR ---
POSITIVE GUIAC This RN placed call to Dr Tian to notify that pt's first guaic was positive. BM from sample was unformed and dark/green. This RN placed call to Dr Villarreal to notify that pt's guiac was positive. Orders given for CBC at 1700 today and tomorrow morning. Order given for BMP tomorrow morning.
--- NOTE | 2018-11-28 14:52 | NUR ---
Called by nursing to review patient. He is working with PT assisted due to pt sats dropping pt became clammy and repitory and heart rate up he denied shest apin. Had to go on bipap. Pt tremulous good atitude wanted to ty but very deconditioned. Will review plan of care [facility]. pt full code no polst on file. May need to be full code for procedural care. If pt wants interventions may need transfer. pt may not have good recovery and rehab potential. Will review with patient family and phsycians once he recovers from therapy.
[2018-11-28 17:03] LABS: BASOPHILS ABSOLUTE AUTO 0.02 K/mm3 (0.00-0.23); BASOPHILS PERCENT AUTO 0 % (0-2); EOSINOPHILS ABSOLUTE AUTO 0.11 K/mm3 (0.00-0.68); EOSINOPHILS PERCENT AUTO 2 % (0-6); Hematocrit 31.5 % (37.0-53.0); Hemoglobin 9.7 g/dL (13.5-17.5); IMMATURE GRAN ABSOLUTE AUTO 0.01 K/mm3 (0.00-0.10); IMMATURE GRAN PERCENT AUTO 0 % (0-1); LYMPHOCYTES PERCENT AUTO 4 % (21-46); MONOCYTES ABSOLUTE AUTO 0.46 K/mm3 (0.16-1.47); MONOCYTES PERCENT AUTO 10 % (4-13); Mean Corpuscular HGB 28.2 pg (26.0-34.0); Mean Corpuscular HGB Conc 30.8 g/dL (31.5-36.5); Mean Corpuscular Volume 92 fL (80-100); NEUTROPHILS ABSOLUTE AUTO 4.04 K/mm3 (1.96-9.15); NEUTROPHILS PERCENT AUTO 84 % (41-73); Platelet Count 144 K/mm3 (150-400); RDW Coefficient Variation 14.2 % (11.7-14.2); RDW Standard Deviation 48.2 fL (35.1-46.3); Red Blood Cell Count 3.44 M/mm3 (4.30-5.90); White Blood Cell Count 4.84 K/mm3 (4.00-11.30)
--- NOTE | 2018-11-28 19:29 | NUR ---
SUMMARY Pt's O2 requirements have increased to 15 LPM NC. SpO2 currently 94%. Pt wore BiPAP for about 4 hours this shift. Pt denies feeling more short of breath than usual. No events per event management consultant. Bedside report given to oncoming BUSTER De La Garza.
--- NOTE | 2018-11-28 19:30 | NUR ---
ASSUME CARE REPORT RECIEVED FROM OFF GOING RN TARA. MONITOR INTACT SHOWING A FIB HEART RATE 90'S-100'S. LUNG SOUNDS COARSE AND DIMINISHED ESPECIALLY IN THE BASES. O2 AT 15L/MIN SPO2 84-91% RESPIRATIONS SHALLOW ABDOMEN SOFT WITH BOWEL SOUNDS FOUR QUADS. FLORES PATENT DRAINING KYLE URINE. ABDUCTOR WEDGE BETWEEN LEGS. LEGS ELEVATED ON PILLOWS. REPOSITIONED TORIGHT SIDE. DRESSINGS TO FEET/LEGS INTACT. CONTINUE TO MONITOR AND REPORT CHANGE IN PATIENT CONDITION
[2018-11-29 04:11] LABS: BASOPHILS ABSOLUTE AUTO 0.03 K/mm3 (0.00-0.23); BASOPHILS PERCENT AUTO 1 % (0-2); EOSINOPHILS ABSOLUTE AUTO 0.13 K/mm3 (0.00-0.68); EOSINOPHILS PERCENT AUTO 3 % (0-6); Hematocrit 32.5 % (37.0-53.0); IMMATURE GRAN ABSOLUTE AUTO 0.01 K/mm3 (0.00-0.10); IMMATURE GRAN PERCENT AUTO 0 % (0-1); LYMPHOCYTES ABSOLUTE AUTO 0.25 K/mm3 (0.84-5.20); LYMPHOCYTES PERCENT AUTO 6 % (21-46); MONOCYTES ABSOLUTE AUTO 0.57 K/mm3 (0.16-1.47); MONOCYTES PERCENT AUTO 12 % (4-13); Mean Corpuscular HGB 28.5 pg (26.0-34.0); Mean Corpuscular HGB Conc 30.8 g/dL (31.5-36.5); Mean Corpuscular Volume 93 fL (80-100); Mean Platelet Volume 9.7 fL (9.1-12.4); NEUTROPHILS ABSOLUTE AUTO 3.59 K/mm3 (1.96-9.15); NEUTROPHILS PERCENT AUTO 78 % (41-73); Platelet Count 142 K/mm3 (150-400); RDW Coefficient Variation 14.1 % (11.7-14.2); Red Blood Cell Count 3.51 M/mm3 (4.30-5.90); White Blood Cell Count 4.58 K/mm3 (4.00-11.30)
[2018-11-29 04:29] LABS: Albumin, Blood 2.8 g/dL (3.4-5.0); Anion Gap 6 mmol/L (6-16); Blood Urea Nitrogen 11 mg/dL (8-24); Bun/Creatinine Ratio 13.5 (12.0-20.0); CO2, Blood 27 mmol/L (21-32); Chloride, Blood 109 mmol/L (98-108); Creatinine, Blood 0.81 mg/dL (0.60-1.20); Glomerular Filtration Rate >60 (60-); Glucose, Blood 112 mg/dL (70-99); Phosphorus, Blood 3.5 mg/dL (2.5-4.9); Sodium, Blood 142 mmol/L (136-145)
--- NOTE | 2018-11-29 06:24 | NUR ---
SHIFT SUMMARY; RESTS FOR SHORT INTERVALS DURING NOC. CONTINUES TO HAVE DESATURATIONS TO 83-84% LUNG SOUNDS DECREASED THROUGHOUT. AIR VO AT 40L 45% SPO2 84-95% ABDOMEN SOFT WITH BOWEL SOUNDS FOUR QUADS. TEMP PROBE FLORES PATENT DRAINING KYLE URINE. LUNG SOUNDS WET WITH OCC MOIST LOOSE COUGH. NONPRODUCTIVE. ABDUCTION WEDGE IN PLACE BETWEEN LEGS. DRESSINGS TO FEET INTACT HEEL PROTECTORS PLACED CONTINUE TO MONITOR AND REPORT CHANGE IN PATIENT CONDITION
--- NOTE | 2018-11-29 07:40 | NUR ---
AM ASSESSMENT: Pt resting in bed with airvo in place at 40L and 50% fio2. LS with crackles throughout. BT positive. PUlses faint but palp. Abduction splint in place between legs. Pt C/O generalized pain in his neck, hips, legs and feet. Will monitor and treat. Pt in Afib, rate in the low 100's. Pt NPO for possible procedure. Will monitor and treat.
[2018-11-29 12:32] LABS: PCO2 Arterial 44.2 mmHg (35-45); PO2 Arterial 61.3 mmHg (80-100); pH Blood Arterial 7.38 (7.35-7.45)
--- NOTE | 2018-11-29 17:54 | NUR ---
shift summary: Pt sitting up in bed to eat some dinner. Pt has been titrated up on his oxygen throughout this shift due to desaturation. Pt would desat down to the low 80's at times and required being placed on bipap at 65% fio2, 05/04 from [id number]. Pt denies SOB, but does appear to be SOB with just talking. He is back on the airvo for dinner at 59% fio2. Biox 89-90% at this time. Heart cath postponed until further notice. Pt had some C/O pain in his BLE. Was medicated with toradol per orders. States this did seem to help. Pt also requested to have abduction brace removed for a little while. Pillow placed between legs to help keep hips within place. No other changes at this time. Call light in reach. Will report to night RN.
--- NOTE | 2018-11-29 21:30 | NUR ---
ASSUMED PT CARE AT 1915 PT RESTING IN BED ON AIRVO AT 40L/MIN, FIO2 AT 63% AND OXYGEN SATURATIONS FLUCTUATING BETWEEN 88-92%. PT IS VERY PLEASANT AND COOPERATIVE. ALERT AND ORIENTED AND ABLE TO MAKE NEEDS KNOWN. SOB NOTED UPON EXERTION WITH REPOSITIONING. PT REQUIRES TWO PERSON MAX ASSIST HE IS VERY RESISTANT TO TURNING; HE ALSO REQUIRES THE BIPAP DURING REPOSITIONING HIS OXYGEN SATURATIONS QUICKLY DECLINE TO LOW 80'S. CHANGED DRESSINGS TO BLE. PT HAS A NOTED VENOUS ULCER TO LEFT LATERAL MALLEOULUS, WELL SCATTERED TO ALBERTO AREA THAT AREN'T OPEN YET. CHANGED DRESSING TO LEFT LATERAL MALLEOULUS; APPLIED CALCIUM ALGINATE SHEET TO WOUND BED, COVERED WITH ABD PAD, AND WRAPPED WITH KERLEX. HE ALSO HAS A NOTED ULCER TO HIS LEFT GREAT TOE AND IN BETWEEN THE GREAT TOE AND 2ND TOE; CHANGED DRESSING AND APPLIED CALCIUM ALGINATE ROPE IN BETWEEN THE TOES, PLACED CALCIUM ALGINATE SHEET OVER THE GREAT TOE, AND THEN WRAPPED WITH KERLEX. CHANGED DRESSINGS TO TOP OF RIGHT FOOT; ONE LACERATION AND ONE ABRASION NOTED. CLEANSED WITH WOUND CLEANSER, APPLIED IODINE, COVERED WITH NON-ADHERENT PADS, AND WRAPPED WITH KERLEX. PT STATES HE GOES TO THE [facility] ONCE A WEEK FOR WOUND CARE MANAGEMENT AND STATES HIS DOES IT EVERY OTHER DAY AT HOME. HELD HS CARDIZEM D/T BP LOW 90'S WITH MAP 65-70. PT REMAINS IN AFIB; HOWEVER, PER DAY RN PT HAS STARTED BACK ON HIS XARELTO TODAY D/T NO CARDIAC INTERVENTIONS IN PLACE SERCONDARY TO RESPIRATORY STATUS. PT IS VERY PLEASANT AND COOPERATIVE WITH CARE. RETRIEVED A FLUTTER VALVE FOR PT AND EDUCATED ON INDICATION AND HOW TO USE; PT STATES HE HAS USED ONE IN THE PAST. CALL LIGHT LEFT WITHIN REACH. NO SIGINIFICANT CHANGES NOTED AT THIS TIME.
[2018-11-30 03:52] LABS: BASOPHILS ABSOLUTE AUTO 0.02 K/mm3 (0.00-0.23); BASOPHILS PERCENT AUTO 0 % (0-2); EOSINOPHILS ABSOLUTE AUTO 0.14 K/mm3 (0.00-0.68); EOSINOPHILS PERCENT AUTO 3 % (0-6); Hematocrit 31.5 % (37.0-53.0); Hemoglobin 9.8 g/dL (13.5-17.5); IMMATURE GRAN ABSOLUTE AUTO 0.01 K/mm3 (0.00-0.10); IMMATURE GRAN PERCENT AUTO 0 % (0-1); LYMPHOCYTES PERCENT AUTO 7 % (21-46); MONOCYTES ABSOLUTE AUTO 0.57 K/mm3 (0.16-1.47); MONOCYTES PERCENT AUTO 12 % (4-13); Mean Corpuscular HGB 28.7 pg (26.0-34.0); Mean Corpuscular HGB Conc 31.1 g/dL (31.5-36.5); Mean Corpuscular Volume 92 fL (80-100); Mean Platelet Volume 9.6 fL (9.1-12.4); NEUTROPHILS ABSOLUTE AUTO 3.56 K/mm3 (1.96-9.15); NEUTROPHILS PERCENT AUTO 78 % (41-73); Platelet Count 150 K/mm3 (150-400); RDW Coefficient Variation 14.1 % (11.7-14.2); RDW Standard Deviation 47.9 fL (35.1-46.3); Red Blood Cell Count 3.41 M/mm3 (4.30-5.90)
[2018-11-30 04:09] LABS: Albumin, Blood 2.8 g/dL (3.4-5.0); Anion Gap 4 mmol/L (6-16); Blood Urea Nitrogen 11 mg/dL (8-24); CO2, Blood 29 mmol/L (21-32); Calcium, Blood 9.2 mg/dL (8.5-10.1); Chloride, Blood 109 mmol/L (98-108); Creatinine, Blood 0.91 mg/dL (0.60-1.20); Glomerular Filtration Rate >60 (60-); Glucose, Blood 108 mg/dL (70-99); Phosphorus, Blood 4.2 mg/dL (2.5-4.9); Potassium, Blood 4.2 mmol/L (3.5-5.5); Sodium, Blood 142 mmol/L (136-145)
--- NOTE | 2018-11-30 05:33 | NUR ---
END OF SHIFT SUMMARY PT HAS REMAINED PLEASANT AND COOPERATIVE; ABLE TO MAKE HIS NEEDS KNOWN. HAS REMAINED ON AIRVO AT 40L/MIN; 60% FIO2. ONLY REQUIRED TO GO ON BIPAP DURING LINEN CHANGE; OTHER THAN THAT PT HAS TOLERATED REPOSITIONING FAIRLY WELL WITHOUT ANY DIPS IN OXYGEN SATURATION. PT CONTINUES WITH A PRODUCTIVE COUGH, THICK AND BARNETT IN COLOR; FLUTTER VALVE LEFT AT BEDSIDE TO ENCOURAGE EXPECTORATION OF SPUTUM. PT DID VERBALIZE HIS FEAR OF HAVING DIFFICULTY TIME SWALLOWING THIN LIQUIDS; WILL PASS ON TO DAY SHIFT REGARDING HAVING THE PHYSICIAN CONSULT SPEECH THERAPY. I DID TOSS HIS THIN LIQUIDS AT BEDSIDE AND GAVE HIM NECTAR THICK LIQUIDS INSTEAD, WHICH HE TENDED TO TOLERATE OKAY; NO COUGHING OR CLEARING OF THROAT NOTED AFTERWARD. PT DID NOT HAVE A BM THIS SHIFT; THEREFORE, TWO GUAIAC SAMPLES STILL NEEDED. WILL ALSO PASS OFF TO DAY SHIFT REGARDING DRESSING CHANGES AND RETRIEVING ORDERS FROM PHYSICIAN IN REGARDS TO MAINTAINING WOUNDS. POSSIBLY CONTACTING [facility] AND RETRIEVING THOSE ORDERS IF THAT IS AN OPTION. CALL LIGHT LEFT WITHIN REACH; WILL CONTINUE TO MONITOR UNTIL REPORT IS HANDED OFF TO ONCOMING RN.
--- NOTE | 2018-11-30 09:00 | NUR ---
CARE ASSUMED PT SITTING UP IN BED WATCHING TV. PILLOWS ADJUSTED FOR PTS COMFORT. C/O GENERALIZED PAIN; FENTANYL 25 MCG IVP GIVEN. TOLERATED EATING BREAKFAST; SPEECH EVAL ORDERED FOR POSSIBLE CHANGES IN DIET NEEDS. WORKED WITH PT THIS AM. AFIB, HR 100-120S. BP STABLE. AFEBRILE. TOLERATING AERVO AT 40L, 61% FIO2. SEEN BY CARDIOLOGY THIS AM WHO STATED THEY WILL NOT BE TAKING FOR CATH AT THIS TIME. ANBX INFUSING. DRESSINGS CLEAN AND DRY AT THIS TIME. WILL CONTINUE TO MONITOR.
--- NOTE | 2018-11-30 12:09 | NUR ---
REASSESSMENT PT HAD LARGE BM THIS MORNING. WORKED WITH PT AT BEDSIDE. CURRENTLY SLEEPING. VSS. AFIB, HR 100-110. AFEBRILE. REMAINS ON HFNC 40L, FIO2 61%. CALL LIGHT WITHIN REACH. WILL CONTINUE TO MONITOR.
--- NOTE | 2018-11-30 17:34 | NUR ---
SHIFT SUMMARY PT WORKED WITH PT IN AM. SLEPT FOR FEW HOURS MIDDAY. HAS NO SIGNS OF DISTRESS. NO ASPIRATION OR CHOKING WHEN EATING. LUNG SOUNDS HAVE BEEN RHONCHORUS AND/OR WHEEZY; BUT TOLERATES INHALERS AND BREATHING TREATMENTS. PT HAS TRANSITIONED FROM HFNC AT 40L TO OXYMIZER AT 8L. SPO2 CURRENTLY 89-93% ON 8L OXYMIZER. SITTING UP EATING DINNER. PAIN CONTROLLED AT THIS TIME. LEG DRESSINGS REMAIN DRY. PT TURNED AND HIPS SHIFTED OFTEN TOLERATED. VSS ENTIRE SHIFT. WILL GIVE BEDSIDE, HANDOFF REPORT TO NOC RN.
--- NOTE | 2018-11-30 20:30 | NUR ---
ASSUMED PT CARE AT 1915 PT RESTING IN BED ON 8L VIA OXYMIZER WITH OXYGEN SATURATIONS IN LOW 90'S. PT ALERT AND ORIENTED AND ABLE TO MAKE NEEDS KNOWN. LUNG SOUNDS REMAIN CLEAR TO BILATERAL UPPER LOBES AND DIMINISHED TO BILATERAL LOWER LOBES. 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 REDRESSED WOUNDS TO LLE D/T DRESSING NOT BEING INTACT; CLEANSED LEFT LATERAL MALLEOULUS WITH WOUND CLEANSER, PATTED DRY, AND APPLIED CALCIUM ALGINAGE, COVERED WITH ABD PAD, AND WRAPPED WITH KERLEX. DRESSING TO LEFT BIG TOE REMAINED INTACT, BUT JUST COVERED WITH KERLEX. ABRASION AND SKIN TEAR TO RIGHT FOOT; REMOVED NON-ADHERENT PAD, CLEANSED WITH WOUND CLEANSER, AND APPLIED BANDAID. PT C/O 5/10 GENERAL PAIN; MEDICATED WITH PRN TYLENOL, WHICH APPEARED EFFECTIVE FOR PT. FLORES CATH REMAINS PATENT AND DRAINING KYLE COLORED URINE TO GRAVITY. PENIS AND BILATERAL LEGS REMAIN MODERATELY SWOLLEN WITH PENIS NOTED TO HAVE PITTING EDEMA. CALL LIGHT LEFT WITHIN REACH. WILL OFFER REPOSITIONING EVERY TWO HOURS FOR COMFORT.
[2018-12-01 04:00] LABS: BASOPHILS ABSOLUTE AUTO 0.02 K/mm3 (0.00-0.23); BASOPHILS PERCENT AUTO 1 % (0-2); EOSINOPHILS ABSOLUTE AUTO 0.15 K/mm3 (0.00-0.68); EOSINOPHILS PERCENT AUTO 4 % (0-6); Hematocrit 30.5 % (37.0-53.0); Hemoglobin 9.2 g/dL (13.5-17.5); IMMATURE GRAN ABSOLUTE AUTO 0.02 K/mm3 (0.00-0.10); IMMATURE GRAN PERCENT AUTO 1 % (0-1); LYMPHOCYTES ABSOLUTE AUTO 0.33 K/mm3 (0.84-5.20); LYMPHOCYTES PERCENT AUTO 8 % (21-46); MONOCYTES ABSOLUTE AUTO 0.53 K/mm3 (0.16-1.47); MONOCYTES PERCENT AUTO 13 % (4-13); Mean Corpuscular HGB 28.2 pg (26.0-34.0); Mean Corpuscular HGB Conc 30.2 g/dL (31.5-36.5); Mean Corpuscular Volume 94 fL (80-100); Mean Platelet Volume 9.5 fL (9.1-12.4); NEUTROPHILS ABSOLUTE AUTO 3.09 K/mm3 (1.96-9.15); NEUTROPHILS PERCENT AUTO 75 % (41-73); Platelet Count 144 K/mm3 (150-400); RDW Coefficient Variation 13.8 % (11.7-14.2); RDW Standard Deviation 47.2 fL (35.1-46.3); Red Blood Cell Count 3.26 M/mm3 (4.30-5.90); White Blood Cell Count 4.14 K/mm3 (4.00-11.30)
[2018-12-01 04:16] LABS: Albumin, Blood 2.6 g/dL (3.4-5.0); Anion Gap 3 mmol/L (6-16); Blood Urea Nitrogen 11 mg/dL (8-24); Bun/Creatinine Ratio 13.8 (12.0-20.0); CO2, Blood 30 mmol/L (21-32); Calcium, Blood 8.9 mg/dL (8.5-10.1); Chloride, Blood 110 mmol/L (98-108); Glomerular Filtration Rate >60 (60-); Glucose, Blood 106 mg/dL (70-99); Phosphorus, Blood 3.7 mg/dL (2.5-4.9); Sodium, Blood 143 mmol/L (136-145)
--- NOTE | 2018-12-01 06:44 | NUR ---
END OF SHIFT SUMMARY PT MAINTAINED AT 10L VIA OXYMIZER FOR MOST OF NIGHT; AROUND 2300 PT WAS SWITCHED TO AIRVO D/T PT BEING A MOUTH BREATHER AND OXYGEN SATURATIONS WERE DROPPING TO MID 80'S. AIRVO AT 40L/MIN WITH FIO2 AT 61%; OXYGENS SATURATION MAINTAINED GREATER THAN 90% WITH THOSE SETTINGS. SWITCHED BACK TO 10L VIA OXYMIZER AROUND 0600 D/T PT BEING AWAKE; OXYGEN SATURATION CONTINUE TO STAY ABOVE 90%. PT HAS MAINTAINED ADEQUATE HIP ALIGNMENT; NO INWARD ROTATING OF KNEE, TOES HAVE REMAINED POINTED OUT, ABDUCTOR PILLOW WEDGE HAS REMAINED BETWEEN LEGS. PT HAS BEEN VERY COMPLIANT WITH HIP PRECAUTIONS. C/O GENERALIZED PAIN; MEDICATED WITH BOTH TYLENOL AND ULTRAM FOR PAIN MANAGEMENT, WHICH BOTH APPEARED EFFECTIVE. PT CONTINUES TO HAVE DIFFICULT TIME SWALLOWING. THICKENED WATER PROVIDED. PT EVEN STRUGGLED WITH MEDS WHOLE WITH APPLESAUCE; SUGGESTED PT TRYING PUDDING NEXT TIME OR CRUSHING MEDS. PT STATED HE WOULD BE OPEN TO TRYING PUDDING. CALL LIGHT LEFT WITHIN REACH; PT ABLE TO MAKE HIS NEEDS KNOWN. WILL CONTINUE TO MONITOR UNTIL REPORT IS HANDED OFF TO ONCOMING RN.
--- NOTE | 2018-12-01 07:58 | NUR ---
ASSUMED CARE NOTE REPORT RECEIVED FROM BUSTER CINTRON. BEDSIDE ROUNDING DONE. PT RESTING IN BED IN FOWLERS POSITION, EATING BREAKFAST. PT WITH OXYMIZER ON AT 10LPM. RHYTHM SHOWING AFIB ON THE MONITOR, HR IN 100S. PT DENIES ANY CHEST PAIN/PRESSURE. PT DENIES SOB/DYSPNEA. PER ABDULAZIZ PT NEEDS TO MORE GUAIC STOOLS WHEN THEY HAPPEN. RECEIVED IN REPORT THAT PT WAS TAKEN TO CORPORATE AFFAIRS MANAGER FOR ANGIO AND FOUND TO NEED A STENT TO LEFT MAIN BUT WAS NOT STABLE ENOUGH TO HAVE DONE AT TIME OF ANGIO AND WOULD NEED TO RETURN AN OUTPATIENT, PT REFUSED. RIGHT GROIN SITE STABLE. RIGHT RADIAL ACCESS SITE STABLE. PT DENIES ANY PAIN OR DISCOMFORT AT THIS TIME. WILL CONT TO MONITOR PT. CALL LIGHT IN REACH.
--- NOTE | 2018-12-01 10:36 | NUR ---
PHYSICAL THERAPY PHYSICAL THERAPY WORKED WITH PT. ASSISTED PT TO DANGLE AT BEDSIDE. PT VERY DYSPNEIC WITH ACTIVITY, REQUIRING O2 TO BE TITRATED UP TO 10LPM, SPO2 MAINTAINED BETWEEN 86-88% DURING ACTIVITY. WHEN ALLOWED TO REST SPO2 RETURNED TO LOW 90S. PT ALSO BECAME TACHYCARDIC WITH HR IN 120-130S WITH ACTIVITY. PT RETURNED TO LYING POSITION IN BED AND PLACED ON BEDPAN PER REQUEST. CALL LIGHT IN REACH AND INSTRUCTED TO CALL WHEN READY.
--- NOTE | 2018-12-01 12:29 | NUR ---
STOOL SAMPLE ORDER PER DR SIMON FOR STOOL SAMPLE X3 TO BE SENT FOR GUAIC. PER REPORT FROM BUSTER CINTRON ONLY ONE SAMPLE HAD BEEN SENT AND PT HAD YET TO HAVE ANOTHER STOOL SINCE. PT HAD ONE BM LATE THIS MORNING, SAMPLE SENT TO LAB AND ORDER FOR GUAIC PLACED.
[2018-12-01 12:46] LABS: Vancomycin, Trough 12.6 ug/mL (5.0-10.0)
[2018-12-01 13:25] LABS: Stool Occult Blood Guaiac 1 Pos (Neg)
--- NOTE | 2018-12-01 13:48 | NUR ---
GUAIC STOOLS DR MERIDA NOTIFIED THAT THE SECOND STOOL SAMPLE CAME BACK POSITIVE. DR MERIDA AWARE THAT PT'S H&H STABLE AND NO SIGNS OF BLEEDING NOTED. ORDERS TO D/C ORDER FOR FURTHER GUAIC STOOL SAMPLES. NO FURTHER CHANGES TO PLAN OF CARE AT THIS TIME. WILL CONT TO MONITOR PT.
--- NOTE | 2018-12-01 14:46 | NUR ---
REPORT OFF REPORT GIVEN TO BUSTER DHALIWAL. PT TO TRANSFER TO PCU 10 WHEN ROOM CLEAN. WILL CONT TO MONITOR PT THROUGH TO TRANSFER.
--- NOTE | 2018-12-01 16:13 | NUR ---
REASSUMED CARE PLAN FOR PT TO REMAIN IN ICU ALTHOUGH PCU STATUS DUE TO BED AVAILABILITY. PT REMAINS RESTING WITH EYES CLOSED, BREATHING E/U ON 10LPM VIA OXYMIZER. WILL CONT TO MONITOR PT.
--- NOTE | 2018-12-01 16:42 | NUR ---
ROUNDS PT RESTING IN BED, ADJUSTING POSITION INDEPENDENTLY. OXYMIZER TITRATED DOWN TO 8LPM, SPO2 94%. NO ACUTE CHANGES. VSS, SEE FLOWSHEET. CALL LIGHT IN REACH. WILL CONT TO MONITOR PT.
--- NOTE | 2018-12-01 17:56 | NUR ---
SHIFT SUMMARY NO ACUTE CHANGES THIS SHIFT. VSS, SEE FLOWSHEET. CALL LIGHT IN REACH. WILL CONT TO MONITOR PT.
--- NOTE | 2018-12-01 19:41 | NUR ---
REPORT OFF REPORT GIVEN TO BUSTER GUSMAN.
[2018-12-02 03:36] LABS: BASOPHILS ABSOLUTE AUTO 0.01 K/mm3 (0.00-0.23); BASOPHILS PERCENT AUTO 0 % (0-2); EOSINOPHILS ABSOLUTE AUTO 0.19 K/mm3 (0.00-0.68); EOSINOPHILS PERCENT AUTO 4 % (0-6); Hemoglobin 9.8 g/dL (13.5-17.5); IMMATURE GRAN ABSOLUTE AUTO 0.02 K/mm3 (0.00-0.10); IMMATURE GRAN PERCENT AUTO 1 % (0-1); LYMPHOCYTES ABSOLUTE AUTO 0.31 K/mm3 (0.84-5.20); LYMPHOCYTES PERCENT AUTO 7 % (21-46); MONOCYTES ABSOLUTE AUTO 0.49 K/mm3 (0.16-1.47); MONOCYTES PERCENT AUTO 11 % (4-13); Mean Corpuscular HGB 28.7 pg (26.0-34.0); Mean Corpuscular HGB Conc 30.6 g/dL (31.5-36.5); Mean Corpuscular Volume 94 fL (80-100); Mean Platelet Volume 9.4 fL (9.1-12.4); NEUTROPHILS ABSOLUTE AUTO 3.36 K/mm3 (1.96-9.15); NEUTROPHILS PERCENT AUTO 77 % (41-73); Platelet Count 154 K/mm3 (150-400); RDW Coefficient Variation 13.7 % (11.7-14.2); RDW Standard Deviation 47.1 fL (35.1-46.3); Red Blood Cell Count 3.42 M/mm3 (4.30-5.90); White Blood Cell Count 4.38 K/mm3 (4.00-11.30)
[2018-12-02 03:55] LABS: Albumin, Blood 2.7 g/dL (3.4-5.0); Anion Gap 4 mmol/L (6-16); Blood Urea Nitrogen 11 mg/dL (8-24); Bun/Creatinine Ratio 13.1 (12.0-20.0); CO2, Blood 31 mmol/L (21-32); Calcium, Blood 9.2 mg/dL (8.5-10.1); Chloride, Blood 107 mmol/L (98-108); Creatinine, Blood 0.84 mg/dL (0.60-1.20); Glomerular Filtration Rate >60 (60-); Glucose, Blood 107 mg/dL (70-99); Phosphorus, Blood 4.1 mg/dL (2.5-4.9); Sodium, Blood 142 mmol/L (136-145)
--- NOTE | 2018-12-02 04:34 | NUR ---
SHIFT SUMMARY: PATIENT O2 SATURATIONS DECREASE WHEN PATIENT SELF SUCTIONS AND IS O2 SATURATION LEVELS ARE SLOW TO RECOVER AFTERWARDS. PATIENT HAS NO NEW SKIN ISSUES, VSS, CALL LIGHT WITHIN REACH, BED LOW AND LOCKED AND NO C/O PAIN AT THIS TIME.
--- NOTE | 2018-12-02 07:30 | NUR ---
ASSUMED CARE: PT RESTING QUIETLY IN BED, ON 8L O2 VIA OXYMIZER, NO ACUTE NEEDS OR CONCERNS NOTED.
--- NOTE | 2018-12-02 09:00 | NUR ---
DISCUSSED PT WITH DR SIMON. WISHES TO KEEP PT PCU STATUS DUE TO INCREASED OXYGEN NEED. PT DENIES FURTHER NEEDS OR CONCERNS
--- NOTE | 2018-12-02 12:00 | NUR ---
TITRATING O2 PER PT REQUEST AND NEEDED. PT CURRENTLY AT 10L O2 VIA OXYMIZER
--- NOTE | 2018-12-02 16:00 | NUR ---
PHYSICAL THERAPY STATES THEY DID BED EXERCISES WITH PT AND THAT RECOMMENDATION IS SNF. PT REQUESTED BED BATH WHICH WAS COMPLETED. PT BECAME SOB WITH LOG ROLLING. BREAK PROVIDED AND BED BATH COMPLETED. NO FURTHER NEEDS OR CONCERNS AT THIS TIME.
--- NOTE | 2018-12-02 18:01 | NUR ---
SHIFT SUMMARY: PT HAS BEEN ON 6-10L T/O SHIFT DEPENDING ON SOB AND EXERTION. WORKED WITH PHYSICAL THERAPY TODAY ON BED EXERCISES. PLAN IS FOR DC TO SNF. NO FURTHER NEEDS OR CONCERNS AT THIS TIME.
[2018-12-03 03:39] LABS: BASOPHILS ABSOLUTE AUTO 0.02 K/mm3 (0.00-0.23); BASOPHILS PERCENT AUTO 1 % (0-2); EOSINOPHILS ABSOLUTE AUTO 0.13 K/mm3 (0.00-0.68); EOSINOPHILS PERCENT AUTO 3 % (0-6); Hematocrit 30.1 % (37.0-53.0); Hemoglobin 9.2 g/dL (13.5-17.5); IMMATURE GRAN ABSOLUTE AUTO 0.01 K/mm3 (0.00-0.10); IMMATURE GRAN PERCENT AUTO 0 % (0-1); LYMPHOCYTES ABSOLUTE AUTO 0.38 K/mm3 (0.84-5.20); LYMPHOCYTES PERCENT AUTO 9 % (21-46); MONOCYTES ABSOLUTE AUTO 0.52 K/mm3 (0.16-1.47); MONOCYTES PERCENT AUTO 12 % (4-13); Mean Corpuscular HGB 27.9 pg (26.0-34.0); Mean Corpuscular HGB Conc 30.6 g/dL (31.5-36.5); Mean Platelet Volume 9.9 fL (9.1-12.4); NEUTROPHILS PERCENT AUTO 76 % (41-73); Platelet Count 155 K/mm3 (150-400); RDW Coefficient Variation 13.8 % (11.7-14.2); RDW Standard Deviation 46.5 fL (35.1-46.3); White Blood Cell Count 4.36 K/mm3 (4.00-11.30)
[2018-12-03 03:44] LABS: Mean Corpuscular Volume 91 fL (80-100)
[2018-12-03 04:01] LABS: Albumin, Blood 2.6 g/dL (3.4-5.0); Anion Gap 5 mmol/L (6-16); Blood Urea Nitrogen 11 mg/dL (8-24); Bun/Creatinine Ratio 12.2 (12.0-20.0); CO2, Blood 31 mmol/L (21-32); Calcium, Blood 9.1 mg/dL (8.5-10.1); Chloride, Blood 106 mmol/L (98-108); Glomerular Filtration Rate >60 (60-); Glucose, Blood 121 mg/dL (70-99); Potassium, Blood 3.5 mmol/L (3.5-5.5); Sodium, Blood 142 mmol/L (136-145)
--- NOTE | 2018-12-03 06:00 | NUR ---
SHIFT SUMMARY: PATIENT SLEPT WELL THIS SHIFT, VSS. O2 STILL DROPS WITH COUGH AND SUCTION BUT OTHERWISE REMAINS STABLE >90% AT 10L. NO OTHER ISSUES NOTED.
[2018-12-03 14:15] LABS: Vancomycin, Trough 23.7 ug/mL (5.0-10.0)
--- NOTE | 2018-12-03 15:13 | NUR ---
SHIFT SUMMARY PT RESTING IN BED THROUGHOUT THE DAY. VSS. ALERT AND ORIENTED X3. C/O 11/06 "ALL OVER" PAIN, MEDICATED WITH PRN PAIN MEDS. WEAKNESS NOTED TO BLE. LUNG SOUNDS COARSE UPPERS, DIMINISHED BASES. DYSPNEA NOTED, ON 10L OXYMIZER, SATURATIONS LOW 90s. PT COUGHING UP SOME SPUTUM, USING YAUNKERS TO SUCTION. AFIB RATE 90s ON MONITOR. 2+ PITTING EDEMA TO BLE, NON PITTING GENERALIZED EDEMA NOTED. FLORES DRAINING YELLOW URINE. WOUND DRSGS TO LLE CDI. BANDAGES TO RIGHT FOOT CDI. WILL CONTINUE TO MONITOR.
--- NOTE | 2018-12-03 15:38 | NUR ---
TRANSFER NOTE PT STABLE FOR TRANSFER TO SURGICAL FLOOR. REPORT CALLED TO MARISOL GOINS ON SURGICAL FLOOR. PT TRANSFERED VIA BED TO SURGICAL FLOOR.
--- NOTE | 2018-12-03 16:25 | NUR ---
PT ARRIVED TO RM 209, A&0X3, REP PAIN TOLERABLE AT THIS TIME, MARY PO, DENIES N&V, BLE ELEVATED ON PILLOWS, 10L NC, PRODUCTIVE COUGH, USING FLUTTER VALVE. FLORES PATENT & DRAINING YELLOW URINE, OFF FLOOR. WCTM AND TX PER EMAR UNTIL REPORT GIVEN TO ONCOMING NOC RN.
[2018-12-04 04:31] LABS: BASOPHILS ABSOLUTE AUTO 0.04 K/mm3 (0.00-0.23); BASOPHILS PERCENT AUTO 1 % (0-2); EOSINOPHILS ABSOLUTE AUTO 0.12 K/mm3 (0.00-0.68); EOSINOPHILS PERCENT AUTO 2 % (0-6); Hematocrit 30.7 % (37.0-53.0); Hemoglobin 9.3 g/dL (13.5-17.5); IMMATURE GRAN ABSOLUTE AUTO 0.02 K/mm3 (0.00-0.10); IMMATURE GRAN PERCENT AUTO 0 % (0-1); LYMPHOCYTES ABSOLUTE AUTO 0.43 K/mm3 (0.84-5.20); LYMPHOCYTES PERCENT AUTO 7 % (21-46); MONOCYTES ABSOLUTE AUTO 0.55 K/mm3 (0.16-1.47); MONOCYTES PERCENT AUTO 10 % (4-13); Mean Corpuscular HGB 28.3 pg (26.0-34.0); Mean Corpuscular HGB Conc 30.3 g/dL (31.5-36.5); Mean Corpuscular Volume 93 fL (80-100); Mean Platelet Volume 9.6 fL (9.1-12.4); NEUTROPHILS ABSOLUTE AUTO 4.62 K/mm3 (1.96-9.15); NEUTROPHILS PERCENT AUTO 80 % (41-73); Platelet Count 177 K/mm3 (150-400); RDW Coefficient Variation 13.9 % (11.7-14.2); RDW Standard Deviation 47.4 fL (35.1-46.3); Red Blood Cell Count 3.29 M/mm3 (4.30-5.90); White Blood Cell Count 5.78 K/mm3 (4.00-11.30)
[2018-12-04 04:53] LABS: Albumin, Blood 2.7 g/dL (3.4-5.0); Anion Gap 3 mmol/L (6-16); Blood Urea Nitrogen 15 mg/dL (8-24); Bun/Creatinine Ratio 13.6 (12.0-20.0); CO2, Blood 33 mmol/L (21-32); Calcium, Blood 9.2 mg/dL (8.5-10.1); Chloride, Blood 108 mmol/L (98-108); Glomerular Filtration Rate >60 (60-); Glucose, Blood 103 mg/dL (70-99); Magnesium, Blood 1.4 mg/dL (1.6-2.4); Phosphorus, Blood 3.8 mg/dL (2.5-4.9); Potassium, Blood 3.7 mmol/L (3.5-5.5); Sodium, Blood 144 mmol/L (136-145)
--- NOTE | 2018-12-04 06:06 | NUR ---
SHIFT SUMMARY PT A&O X4 T/O SHIFT. DIFFICULT TO ASSESS O2 SATURATION D/T BASELINE POOR PERFUSION IN EXT; O2 90%+ ON 10L VIA OXIMIZER; WEAK, PRODUCTIVE COUGH, WALL SUCTION YANKAUER IN PT REACH. HEEL PROTECTORS TO BLE'S; PT REPOSITIONED TOLERATED. DRESSINGS TO BLE WOUNDS CDI. PAIN MANAGED PER EMAR. BP STABLE, PT DENIED CP/P. FLORES IN PLACE, CLOUDY YELLOW URINE. CALL LIGHT IN REACH; PT DEMONSTRATES USE. WCTM UNTIL REPORT TO DAY SHIFT RN.
--- NOTE | 2018-12-04 16:48 | NUR ---
SHIFT SUMMARY PT HAS BEEN UPBEAT TODAY. WAS VERY HOPEFUL TO TX TO SNF TODAY, BUT UNDERSTANDS HE WILL GO WHEN APPROP ARRANAGEMENTS ARE MADE. WORK OF BREATHING SLIGHTLY BETTER THIS AFTERNOON, SPEAKING IN FULL SENTENCES.
--- NOTE | 2018-12-05 00:43 | NUR ---
PATIENT GOT A NOSE BLEED. RN AND I CLEANED IT UP WITH WASH CLOTH AND GOT IT STOPPED.
[2018-12-05 06:17] LABS: Anion Gap 3 mmol/L (6-16); Blood Urea Nitrogen 22 mg/dL (8-24); Bun/Creatinine Ratio 13.6 (12.0-20.0); CO2, Blood 33 mmol/L (21-32); Calcium, Blood 9.1 mg/dL (8.5-10.1); Chloride, Blood 108 mmol/L (98-108); Creatinine, Blood 1.62 mg/dL (0.60-1.20); Glomerular Filtration Rate 43 (60-); Glucose, Blood 111 mg/dL (70-99); Magnesium, Blood 1.4 mg/dL (1.6-2.4); Potassium, Blood 4.1 mmol/L (3.5-5.5); Sodium, Blood 144 mmol/L (136-145)
[2018-12-05 06:23] LABS: Vancomycin, Trough 29.8 ug/mL (5.0-10.0)
--- NOTE | 2018-12-05 07:00 | NUR ---
SHIFT SUMMARY HAD A SECOND NOSE BLEED THIS SHIFT. PRESSURE APPLIED, AND HUMIDITY ADDED. DENIES FURTHER NEEDS OR WANTS AT THIS TIME. SAFETY MEASURES IN PLACE. WILL GIVE HAND OFF TO ONCOMING SHIFT USING SBAR.
--- NOTE | 2018-12-05 17:38 | NUR ---
SHIFT SUMMARY PT'S URONE OUTPUT INCREASED THIS SHIFT, RESPIRATORY EFFORT DECREASED BUT DID STILL DECOMPENSATE WITH THERAPY. PLANS TO D/C TO SNF TODAY WERE UNSUCCESSFUL PER CARE MANAGAMENT.
[2018-12-06 00:41] LABS: Vancomycin, Random 24.3 ug/mL
--- NOTE | 2018-12-06 06:50 | NUR ---
SHIFT SUMMARY HAS HAD A GOOD NIGHT. PRODUCTIVE COUGH CONTINUES. NO C/O PAIN OR DISCOMFORT. DENIES FURTHER NEEDS OR WANTS AT THIS TIME. SAFETY MEASURES IN PLACE. WILL GIVE HAND OFF TO ONCOMING SHIFT USING SBAR.
[2018-12-06 13:49] LABS: Vancomycin, Random 22.6 ug/mL
[2018-12-06 13:52] LABS: Magnesium, Blood 1.8 mg/dL (1.6-2.4)
[2018-12-06 13:53] LABS: Albumin, Blood 2.6 g/dL (3.4-5.0); Albumin/Globulin Ratio 0.7 (0.8-1.8); Bilirubin, Total 0.9 mg/dL (0.1-1.0); Bun/Creatinine Ratio 15.9 (12.0-20.0); Calcium, Blood 8.9 mg/dL (8.5-10.1); Creatinine, Blood 1.89 mg/dL (0.60-1.20); Globulin, Blood 3.6 g/dL (2.2-4.0); Potassium, Blood 4.4 mmol/L (3.5-5.5); Total Protein, Blood 6.2 g/dL (6.4-8.2)
--- NOTE | 2018-12-06 18:25 | NUR ---
Clinical Visit; Call recieved by Myrtle social science professor. She states that Dr. Kraus would like palliative to see pt. Myrtle states that social servies is having a difficult time placing patient due to his extreme oxygen requirements. Pt is requiring 10 L, baseline 8 liters. He is post surg hip procedure. Pt is alert, oriented. He is able to speak in about 5 words at a time before he has to recover. His air time recovery is about 5 seconds. High respriation rate, has some retractions. He has vitals machine faced to him so that he can monitor his O2 sats. When I move it away from him, he asks for it to be back facing him. He is sating about 89-90% during my conversation in which he is speaking. He states that his normal is 92% at home. He lives with his , he is wheelchair bound at baseline and "tootles" around his house. He states that his really isn't able to take care of him anymore. He reports his improvement is "slow," and "sometimes it seems that I am not making any progress at all." Asked if he has planned for "if" he does not continue to improve and he states, "not really." Gentle conversation around this subject, and he does not appear to want to pursue this, even though he will talk about any other subject. He speaks about his family, his love for his grandchildren. He states that he has been in pain, but when the nurses come in he has forgotten to ask for pain medications and does not want to "bug the nurses because they are so busy." Encouraged to treat pain. Instructed that he may do better with physical therapy if he was more assertive with his needs. He verbalizes understanding. He does not share a pain level with me, but he reports, "oh I feel it, it's there." He reports that his pain is distracting even at rest. He reports difficulty having bowel movements and eating due to his severe shortness of breath. Established repport with the pt during this visit. Will follow up with his tomorrow to assess symptoms. He appears very anxious. Recommend low dose of roxanol to assist in relaxing his breathing for the purpose of relieving suffering and promote a feeling of control. Will remain available and follow up.
--- NOTE | 2018-12-06 19:24 | NUR ---
SHIFT SUMMARY PT HAS DONE WELL TODAY. WORKED WITH THERAPY AND WAS ABLE TO STAND FOR ALMOST ONE MINUTE. VERY PLEASANT AND UPBEAT. REMAINED AT 10L BUT DID SHOW SOME IMPROVEMNT WITH RESP EFFORT.
[2018-12-07 04:41] LABS: BASOPHILS ABSOLUTE AUTO 0.01 K/mm3 (0.00-0.23); BASOPHILS PERCENT AUTO 0 % (0-2); EOSINOPHILS ABSOLUTE AUTO 0.16 K/mm3 (0.00-0.68); EOSINOPHILS PERCENT AUTO 3 % (0-6); Hematocrit 26.9 % (37.0-53.0); Hemoglobin 8.2 g/dL (13.5-17.5); IMMATURE GRAN ABSOLUTE AUTO 0.03 K/mm3 (0.00-0.10); IMMATURE GRAN PERCENT AUTO 1 % (0-1); LYMPHOCYTES ABSOLUTE AUTO 0.35 K/mm3 (0.84-5.20); LYMPHOCYTES PERCENT AUTO 6 % (21-46); MONOCYTES ABSOLUTE AUTO 0.57 K/mm3 (0.16-1.47); MONOCYTES PERCENT AUTO 9 % (4-13); Mean Corpuscular HGB 28.1 pg (26.0-34.0); Mean Corpuscular HGB Conc 30.5 g/dL (31.5-36.5); Mean Corpuscular Volume 92 fL (80-100); Mean Platelet Volume 10.2 fL (9.1-12.4); NEUTROPHILS ABSOLUTE AUTO 5.22 K/mm3 (1.96-9.15); NEUTROPHILS PERCENT AUTO 82 % (41-73); Platelet Count 152 K/mm3 (150-400); RDW Coefficient Variation 14.2 % (11.7-14.2); RDW Standard Deviation 47.6 fL (35.1-46.3); Red Blood Cell Count 2.92 M/mm3 (4.30-5.90); White Blood Cell Count 6.34 K/mm3 (4.00-11.30)
[2018-12-07 04:58] LABS: Anion Gap 3 mmol/L (6-16); Blood Urea Nitrogen 31 mg/dL (8-24); Bun/Creatinine Ratio 15.3 (12.0-20.0); CO2, Blood 32 mmol/L (21-32); Calcium, Blood 8.6 mg/dL (8.5-10.1); Chloride, Blood 106 mmol/L (98-108); Creatinine, Blood 2.03 mg/dL (0.60-1.20); Glomerular Filtration Rate 34 (60-); Glucose, Blood 113 mg/dL (70-99); Potassium, Blood 4.3 mmol/L (3.5-5.5); Sodium, Blood 141 mmol/L (136-145); Vancomycin, Random 20.1 ug/mL
--- NOTE | 2018-12-07 06:30 | NUR ---
SHIFT SUMMARY HAS HAD A GOOD NIGHT. PRODUCTIVE COUGH CONTINUES. C/O PAIN TO RLE MEDICAED WITH TYLENOL PER MD ORDER. DENIES FURTHER NEEDS OR WANTS AT THIS TIME. SAFETY MEASURES IN PLACE. WILL GIVE HAND OFF TO ONCOMING SHIFT USING SBAR.
--- NOTE | 2018-12-07 12:15 | NUR ---
report given to Yesi GOINS in PCU, pt will be transferred
--- NOTE | 2018-12-07 12:30 | NUR ---
transferred pt via bed to PCU 9. pt escorted by this RN and CONSTRUCTION SITE CROSSING GUARD
--- NOTE | 2018-12-07 13:52 | NUR ---
TRANSFER NOTE RECEIVED REPORT FROM BUSTER OLIVER IN SURG. PT TO ROOM VIA GURNEY, 4 PERSON TRANSFER WITH SLIDER SHEET. PT DESATURATED WITH MOVEMENT/EXERTION TO 78-84% ON 12L O2 VIA NC, SLOW RECOOPERATIVE. PT A&Ox4. CALM AND COOPERTIVE WITH CARE. SOB WITH EXERTION, 12L O2 VIA HUMIDIFIED O2, LS DIM BASES, COARSE T/O. PT DENIES PAIN, NAUSEA AND NUM/T. TELE AFIB 80-90'S. VSS. NOTIFED DR SAEED OF DESATURATION WITH MOVEMENT, NEW ORDERS TO CANCEL 2VIEW XR AND ORDER 1 VIEW PORTABLE XRAY. WILL CONTINUE TO MONITOR.
--- NOTE | 2018-12-07 15:29 | NUR ---
PT HAS PICC LINE IN RIGTH ARM, PER REPORT FROM BUSTER OLIVER IN SURGICAL UNIT, PICC LINE SITE STARTED BLEEDING AND WAS WRAPPED. NOTIFIED PAOLA SHANNON RN ON MEDICAL TO ASSESS PICC LINE, PICC LINES DRESSING CHANGES, NO LONGER BLEEDING AND FLUSHES AND DRAWS WELL. BRUISING/SWELLING TO RIGHT UPPER ARM DOWN TO MID FOREARE. NOTIFIED DR SAEED, NEW ORDERS TO DISCONTINUE XARELTO. WILL CONTINUE TO MONITOR
--- NOTE | 2018-12-07 19:50 | NUR ---
SHIFT SUMMARY PT A&O. CALM AND COOPERATIVE WITH CARE. PT RESTIING IN BED, ASSIST WITH REPOSITIONING. PT SOB WITH EXERTION AND REPOSITIONING/TURING/CHANGING, O2 SATURATION DESATURATES 70-80'S AND IS SLOW TO RECOOPERATE. PT ON 10-12L O2 VIA NC T/O SHIFT, PT RECEIVING BREATHING TREATMENT PER RT. PT DENIES PAIN AND NAUSEA T/O SHIFT. HELD XARELTO PER DR SAEED'S ORDERS, FOR BRUISING/HEMATOMA TO RUE, AROUND THE PICC LINE. VSS. NO OTHER ACUTE CHANGES NOTED DURINGS SHIFT. REPORT GIVEN TO ONCOMING RN.
--- NOTE | 2018-12-07 22:05 | NUR ---
ASSUMED CARE OF PATIENT AT APPROXIMATELY 1900 FROM SYD Renee RN. PATIENT ALERT AND ORIENTED X4; WEAKNESS IN LEGS; WOUNDS ON LEGS; PATIENT'S OXYGEN SATURATION DROPS TO LOW 80'S WITH ANY ACTIVITY; TAKES MINUTES TO RECOVER AT TIMES. PATIENT REPORTS PAIN IN LEFT HIP AND RIGHT SHOULDER THAT HIS CHRONIC; PATIENT REPORTS SURGERY ON LEFT HIP; MEDICATED PER EMAR WITH GOOD RESULTS. PATIENT DENIES NUMNBESS, TILNGING, DIZZINESS AND NAUSEA. AFIB ON TELE WITH A RATE AVERAGING 90; OXYGEN SATURATION ABOVE 90% ON 11-12 LPM VIA HF HUMIDIFIED NC. PICC STEPHANIE S/L; BRUISING NOTED ON RIGHT ARM. MRSA SWABS SENT OF NARES AND WOUND ON LEFT LOWER LEG FOR CLEARING. PATIENT CURRENTLY RESTING IN BED; BED IN LOWEST POSISTION; BED ALARM IN; CALL LIGHT IN REACH; WILL CONTINUE TO MONITOR AND ASSESS UNTIL END OF SHIFT.
[2018-12-08 04:17] LABS: BASOPHILS ABSOLUTE AUTO 0.02 K/mm3 (0.00-0.23); BASOPHILS PERCENT AUTO 0 % (0-2); EOSINOPHILS ABSOLUTE AUTO 0.15 K/mm3 (0.00-0.68); EOSINOPHILS PERCENT AUTO 2 % (0-6); Hematocrit 26.7 % (37.0-53.0); IMMATURE GRAN ABSOLUTE AUTO 0.02 K/mm3 (0.00-0.10); IMMATURE GRAN PERCENT AUTO 0 % (0-1); LYMPHOCYTES ABSOLUTE AUTO 0.45 K/mm3 (0.84-5.20); LYMPHOCYTES PERCENT AUTO 7 % (21-46); MONOCYTES ABSOLUTE AUTO 0.76 K/mm3 (0.16-1.47); MONOCYTES PERCENT AUTO 11 % (4-13); Mean Corpuscular Volume 93 fL (80-100); Mean Platelet Volume 10.3 fL (9.1-12.4); NEUTROPHILS ABSOLUTE AUTO 5.52 K/mm3 (1.96-9.15); NEUTROPHILS PERCENT AUTO 80 % (41-73); Platelet Count 176 K/mm3 (150-400); RDW Coefficient Variation 14.1 % (11.7-14.2); Red Blood Cell Count 2.86 M/mm3 (4.30-5.90); White Blood Cell Count 6.92 K/mm3 (4.00-11.30)
[2018-12-08 04:49] LABS: Alanine Aminotransfer (ALT/SGP <6 U/L (12-78); Albumin, Blood 2.6 g/dL (3.4-5.0); Albumin/Globulin Ratio 0.7 (0.8-1.8); Alk Phos 69 U/L (50-136); Anion Gap 3 mmol/L (6-16); Aspartate Aminotrans (AST/SGOT 14 U/L (12-37); Blood Urea Nitrogen 37 mg/dL (8-24); Bun/Creatinine Ratio 16.6 (12.0-20.0); CO2, Blood 32 mmol/L (21-32); Calcium, Blood 8.8 mg/dL (8.5-10.1); Chloride, Blood 106 mmol/L (98-108); Creatinine, Blood 2.23 mg/dL (0.60-1.20); Globulin, Blood 3.6 g/dL (2.2-4.0); Glomerular Filtration Rate 30 (60-); Glucose, Blood 104 mg/dL (70-99); Potassium, Blood 4.8 mmol/L (3.5-5.5); Sodium, Blood 141 mmol/L (136-145); Total Protein, Blood 6.2 g/dL (6.4-8.2); Vancomycin, Random 18.5 ug/mL
--- NOTE | 2018-12-08 07:42 | NUR ---
pt laying in bed watching tv, a/ox3, pleasant and cooperative with care, follows commands well, denies pain at this time, states he has a cough but unable to bring it up enough to suction with carlyn, lungs are course in upper luu, dim in bases, resp even and unlabored at rest, becomes very labored with any activity, hrirr, tele in place running afib per monitor see strip, +1 edema noted to b/l le, unable to palpate pp, picc line to jyoti, picc is clear and patent, arm has a large dark purple hematoma to arm from picc line down to hand, is swollen, and tender, btx4, abd large soft nontender, reports reg bm's, mccoy cath draining clear yellow urine, skin has multiple bruisings and wounds, excoriated simon area and buttocks, moves upper arms well, not legs, dressing to right ibarra, asa, call light in reach.
--- NOTE | 2018-12-08 08:00 | NUR ---
PT LAYING IN BED AWAKE A/OX3, PLEASANT AND COOPERATIVE WITH CARE, FOLLOWS COMMANDS WELL, DENIES PAIN, LUNGS ARE COURSE T/O, WET IN BRONCHIAL AREA, HE HAS A PRODUCTIVE COUGH AND SELF SUCTIONS WITH YANKAR, IS CURRENTLY ON 13LI 02 VIA N/C, RESP EVEN WITH SOME LABORING NOTED, NO ACTIVITY TOLERANCE, HRIRR, TELE IN PLACE RUNNIG AFIB PER MONITOR, SEE STRIP, +1, EDEMA NOTED TO B/L LE, PICC LINE IN PLACE SITE IS CLEAR AND PATENT, BTX4, ABD FLAT SOFT NONTENDER, VOIDS VIA BEDPAN, SKIN HAS MULTIPLE WOUNDS, SEE CHART, MOVES UPPER BODY WELL, MAN, CALL LIGHT IN REACH.
--- NOTE | 2018-12-08 11:42 | NUR ---
Assisted the pt with a phone call to his .
--- NOTE | 2018-12-08 12:08 | NUR ---
pt v.s. are stable. he is enjoying his lunch. states he just had a coughing episode but is doing ok now. call light in reach.
--- NOTE | 2018-12-08 18:33 | NUR ---
NO ACUTE CHANGES THIS SHIFT, HAS NOT REQUIRED ANY PAIN MEDS NO ACTIVITY TOLERANCE, DR. SAEED HAD A LISA TALK ABOUT HIS CONDITION. NO FURHTER CHANGES THIS SHIFT. CALL LIGHT IN REACH.
--- NOTE | 2018-12-08 19:30 | NUR ---
ASSUMED CARE PT RESTING IN ROOM COMFROTABLY AT THIS TIME. PER DAY SHIFT PT HAS HAD MULTIPLE CONVERSATIONS WITH PROVIDER AND WITH PALLIATIVE CARE TEAM ABOUT TRANSITIONING TO HOSPICE CARE. PT UNDERSTANDS PROCESS AND CONVERSATIONS WITH AND PALLIATIVE CARE TEAM WILL BE OCCURING TOMORROW WITH PT. PT HAD TO TITRATE UP ON TODAY FROM 8-10L TO 15L CURRENTLY, W/ SATS RANGING 86-93%. PT DESATS W/ ANY EXERTION, AND WITH COUGHING EPISODES. PT HAS YANKUER IN HAND AND SELF SUCTIONS SECRETIONS, WHICH ARE THICK AND BROWN IN COLOR. LS ARE COARSE AND DIM T/O. PT HAS PILLOW UNDERNEATH R HIP, THAT WAS FX RECENTLY. PT USES CALL LIGHT APPROPRIATELY, AND IS BEDREST AT BASELINE. DENIES CP. DENIES OTHER NEEDS. CALL LIGHT IN REACH.
[2018-12-09 03:47] LABS: Vancomycin, Random 16.5 ug/mL
--- NOTE | 2018-12-09 06:18 | NUR ---
SHIFT SUMMARY PT RESTING IN ROOM COMFORTABLY AT THIS TIME. NO ACUTE CHANGES IN STATUS T/O SHIFT. PT REMAINED SOB AND DYSPNIC W/ ANY EXERTION. PT ON 15L HI FLOW O2 W/ SATS RANGING FROM 88-93%. PT HAS PILLOWS UNDERNEATH BLE, AND R HIP D/T RECENT HIP DISLOCATION. PT REPORTS PAIN IS UNDER CONTROL AT THIS TIME. DENIES CP. PT USES URINAL IN BED AND CALLS APPROPRIATELY FOR HELP. CALL LIGHT AND WRIST LINER TOOL IN REACH OF PT.
--- NOTE | 2018-12-09 07:00 | NUR ---
RECVD REPORT FROM PREVIOUS SHIFT RN MAKENNA, PT AWAKE IN BED, CALL LIGHT WITHIN REACH, BED RAILS UP, A/0 X 4, REQUESTS BED MAGALLANES
--- NOTE | 2018-12-09 10:00 | NUR ---
dr rhoades rounding on pt
--- NOTE | 2018-12-09 11:25 | NUR ---
palliative care in with pt
--- NOTE | 2018-12-09 14:34 | NUR ---
palliative care speaking with pt and family
--- NOTE | 2018-12-09 18:02 | NUR ---
dressing change this shift, abd pad over l ankle/heel, kerlex and paper tape, base L large toe with alginate and paper tape
--- NOTE | 2018-12-09 18:13 | NUR ---
shift summary: a/0 x 4, pleasant/cooperative, vs with no acute changes. pt continues to desat with exertion with SPO2 falling to 85% at time, able to recover with sitting up and O2 at 15L high flow. pt's and family to visit and consult with palliative care this afternoon, see pallitiave care RN Alexandrea note. pt tolerated PO intake with no n/v, ate good portion of diets, see I/O. pt used call urinal, dark yellow urine approx 300ML output. non-formed soft stool x 2 this shift. changed L foot dressings this shift.
--- NOTE | 2018-12-09 19:30 | NUR ---
ASSUMED CARE PT RESTING IN ROOM COMFORTABLY. REPORT TAKEN FROM DAY SHIFT RN. PER DAY SHIFT NO ACUTE CHANGES IN STATUS. PT HAD FAMILY VISIT AND DISCUSS HOSPICE. PT AND FAMILY HAVE NOT MADE A FIRM DECISION ON HOSPICE CARE YET. PT AOX4, RESP TACHY AND UNLABORED ON 15L HI FLOW NC, W/ SATS 89-93%. DDNIED PAIN AT THIS TIME. CALL LIGHT IN REACH.
[2018-12-10 05:00] LABS: Vancomycin, Random 20.2 ug/mL
--- NOTE | 2018-12-10 05:51 | NUR ---
SHIFT SUMMARY PT SLEEPING IN ROOM COMFORTABLY AT THIS TIME. NO ACUTE CHANGES IN STATUS T/O NIGHT. PT SLEPT WELL FOR MOST OF THE NIGHT W/ SOME PERIODS OF WAKEFULLNESS. PT WAS REPOSITIONED AND PILLOWS PLACED UNDER ARMS FOR COMFORT D/T EDEMA. RESP TACHY AND SLIGHTLY LABORED ON 15L HI FLOW NC W/ SATS RANGING FROM 89-93%. PT DESATS W/ EXERTION, BUT APPEARS TO BE COMPENSATING AFTER DESAT MUCH BETTER THAN PREVIOUS NIGHT. DENIES CP. PT DID C/O PAIN TO LEGS AND R ARM AND WAS MEDICATED PER EMAR. REACH TOOL W/IN REACH. CALL LIGHT IN REACH.
[2018-12-10 10:16] LABS: BASOPHILS ABSOLUTE AUTO 0.02 K/mm3 (0.00-0.23); BASOPHILS PERCENT AUTO 0 % (0-2); EOSINOPHILS ABSOLUTE AUTO 0.14 K/mm3 (0.00-0.68); EOSINOPHILS PERCENT AUTO 2 % (0-6); Hematocrit 26.6 % (37.0-53.0); Hemoglobin 8.1 g/dL (13.5-17.5); IMMATURE GRAN ABSOLUTE AUTO 0.02 K/mm3 (0.00-0.10); IMMATURE GRAN PERCENT AUTO 0 % (0-1); LYMPHOCYTES ABSOLUTE AUTO 0.27 K/mm3 (0.84-5.20); LYMPHOCYTES PERCENT AUTO 4 % (21-46); MONOCYTES ABSOLUTE AUTO 0.48 K/mm3 (0.16-1.47); MONOCYTES PERCENT AUTO 8 % (4-13); Mean Corpuscular HGB 27.6 pg (26.0-34.0); Mean Corpuscular HGB Conc 30.5 g/dL (31.5-36.5); Mean Corpuscular Volume 91 fL (80-100); Mean Platelet Volume 9.8 fL (9.1-12.4); NEUTROPHILS ABSOLUTE AUTO 5.27 K/mm3 (1.96-9.15); NEUTROPHILS PERCENT AUTO 85 % (41-73); Platelet Count 190 K/mm3 (150-400); RDW Coefficient Variation 14.2 % (11.7-14.2); RDW Standard Deviation 46.7 fL (35.1-46.3); Red Blood Cell Count 2.93 M/mm3 (4.30-5.90)
[2018-12-10 10:32] LABS: Albumin, Blood 2.7 g/dL (3.4-5.0); Anion Gap 5 mmol/L (6-16); Blood Urea Nitrogen 43 mg/dL (8-24); CO2, Blood 30 mmol/L (21-32); Calcium, Blood 8.7 mg/dL (8.5-10.1); Chloride, Blood 105 mmol/L (98-108); Creatinine, Blood 2.26 mg/dL (0.60-1.20); Glomerular Filtration Rate 30 (60-); Glucose, Blood 145 mg/dL (70-99); Phosphorus, Blood 4.5 mg/dL (2.5-4.9); Sodium, Blood 140 mmol/L (136-145)
--- NOTE | 2018-12-10 18:36 | NUR ---
SUMMARY- PT A/O X3, FOLLOWS COMMANDS, MAKES NEEDS KNOWN. DEPENDANT IN CAER, UNABLE TO TURN SIDE TO SIDE RELATED TO SEVERE DYSPNEA WITH ACTIVITY- HOB ABOUT 45 DEGREE AT ALL TIMES WITH O2 15L HIGH FLOW MISTED. DESAT ABOUT 6 TIMES INTO LOW 80'S, TAKES ABOUT 5 MINUTES TO RECOVER VIA MOUTH BREATHING. MEDICATED ROXANOL X1 THIS PM TO AID IN RELAXATION AND PT STATES TO OPEN AIR WHILE EATING DINNER. TAKES LONG TIME TO EAT MEALS. TOLERATING FOOD AND FLUIDS. USES URINAL BUT SPILLS URINE. WAS ABLE TO BATH AND CHANGE LINENE AROUND 1500, BACKSIDE WAS MOIST WITH CHUCKS UNDER PT HAVING TRAPPED MOISTURE. REMORED MEPILEX THAT WAS SATURATED, CLEANSED QUICKLY PT WAS DECOMPISATING, APPLIED CALAZYME TO EXCOEIATED GLUTEUS AND NEW SEBASTIAN PAD AND SHEET. SCROTUM GROSSLY SWOLLEN AND SPLITS IN CREASE, CLEANSED AND APPLIED NYSTATIN AND CALAZYME, PILLOWCASE AROUND SWELLING IN GROIN. PT HAS SEVERELY DIM LUNG FIELD, FREQ MOIST COUGH WITH OCC BLOODY PRODUCTION, USES YAHKAUR. LASIZ 40MG IV GIVEN. WILL REPORT TO NOC.
[2018-12-11 04:57] LABS: Albumin, Blood 2.5 g/dL (3.4-5.0); Anion Gap 4 mmol/L (6-16); Blood Urea Nitrogen 43 mg/dL (8-24); Bun/Creatinine Ratio 17.8 (12.0-20.0); CO2, Blood 31 mmol/L (21-32); Calcium, Blood 8.4 mg/dL (8.5-10.1); Chloride, Blood 106 mmol/L (98-108); Creatinine, Blood 2.41 mg/dL (0.60-1.20); Glomerular Filtration Rate 27 (60-); Glucose, Blood 100 mg/dL (70-99); Phosphorus, Blood 4.9 mg/dL (2.5-4.9); Potassium, Blood 5.3 mmol/L (3.5-5.5); Sodium, Blood 141 mmol/L (136-145); Vancomycin, Random 18.3 ug/mL
--- NOTE | 2018-12-11 06:20 | NUR ---
SHIFT SUMMARY PT RESTING IN ROOM COMFORTABLY AT THIS TIME. NO ACUTE CHANGES IN STATUS T/O NIGHT. PT SLEPT WELL FOR SHORT PERIODS OF TIME. RESP TACHY AND REMAINS SLIGHTLY LABORED ON 15L HI FLOW NC W/ SATS >90%. PT DOES DESAT W/ EXERTION. PT HAD ONE EPISODE OF DESATTING WHILE SLEEPING, PT WAS MOUTH BREATHING IN ROOM AND DIPPED TO 84%. PT RECOVERED QUICKLY AFTER WAKING. MEDICATED PER EMAR ONCE FOR PAIN. CALL LIGHT IN REACH, GRABBER TOOL IN REACH.
--- NOTE | 2018-12-11 18:30 | NUR ---
SHIFT SUMMARY PT ALERT AND ORIENTED. VS HAVE BEEN STABLE. O2 SATS RANGE FROM 88-96 ON 15L HIGH FLOW. PT DESATURATES QUICKLY WITH MINIMAL EXERTION. LS COARSE. PT SELF SUCTIONING. HR AFLUTTER IN THE 90-100'S. PT REPOSITIONED Q2H. WILL CONTINUE TO MONITOR AND REPORT TO ONCOMING RN. CALL LIGHT IN REACH.
--- NOTE | 2018-12-11 21:00 | NUR ---
CARE ASSUMPTION PT A&O X4. PT STATES BODY "ACHES ALL OVER". MONITOR SHOWS AFLUTTER, HR 100-120. LUNG SOUNDS COARSE, DIM IN BASES. PT SWITCHED FROM 15L HIGH FLOW TO 15L NRB W/ SPO2 > 90% WHEN AT REST W/OUT ACTIVITY. PT DESATS QUICKLY W/ MINIMAL ACTIVITY OR BRIEF SELF-REMOVAL OF O2 TO WIPE NOSE. PT DESATS INTO 70'S, W/ SLOW RECOVERY TO > 90% ON 15L NRB. WILL CONTINUE TO MONITOR AND PROVIDE CARE.
[2018-12-12 04:28] LABS: Hematocrit 25.7 % (37.0-53.0); Hemoglobin 7.7 g/dL (13.5-17.5); Mean Corpuscular HGB 27.9 pg (26.0-34.0); Mean Corpuscular Volume 93 fL (80-100); Mean Platelet Volume 9.8 fL (9.1-12.4); Platelet Count 190 K/mm3 (150-400); RDW Coefficient Variation 14.6 % (11.7-14.2); RDW Standard Deviation 48.3 fL (35.1-46.3); Red Blood Cell Count 2.76 M/mm3 (4.30-5.90); White Blood Cell Count 7.17 K/mm3 (4.00-11.30)
--- NOTE | 2018-12-12 04:32 | NUR ---
SHIFT SUMMARY PT A&O X4. PT DEPENDENT ON 15L NRB T/O SHIFT. PT CONTINUES TO DESAT TO HIGH 70'S, LOW 80'S W/ MINIMAL ACTIVITY & WHEN SWITCHING FROM 15L NRB TO HIGH FLOW CANNULA FOR SIPS OF WATER/WIPING NOSE. PT SLOWLY RECOVERS W/ DEEP BREATHING ON THE NRB. OTHERWISE VSS. MONITOR SHOWS AFIB, HR 90-120. R ARM RED AND SWOLLEN, ELEVATED ON PILLOWS. PT C/O PAIN AND GENERAL "ACHE", MEDICATING PER EMAR. WILL CONTINUE TO MONITOR AND PROVIDE CARE UNTIL REPORT OFF TO DAY SHIFT RN.
[2018-12-12 04:44] LABS: Albumin, Blood 2.7 g/dL (3.4-5.0); Anion Gap 4 mmol/L (6-16); Blood Urea Nitrogen 46 mg/dL (8-24); Bun/Creatinine Ratio 17.9 (12.0-20.0); CO2, Blood 31 mmol/L (21-32); Calcium, Blood 8.7 mg/dL (8.5-10.1); Chloride, Blood 105 mmol/L (98-108); Creatinine, Blood 2.57 mg/dL (0.60-1.20); Glomerular Filtration Rate 26 (60-); Glucose, Blood 99 mg/dL (70-99); Phosphorus, Blood 4.9 mg/dL (2.5-4.9); Potassium, Blood 5.4 mmol/L (3.5-5.5); Sodium, Blood 140 mmol/L (136-145)
--- NOTE | 2018-12-12 10:06 | NUR ---
This morning I asked the pt what the plan for discharge was. He stated that he wasn't sure, and wanted to talk to his , preferably after he had talked to the doctor; however, he changed his mind and called her then. I spoke with Damion Quesada regarding the discharge plan as I see no notes from palliative care since the 06 of December, nor any recent notes from material planner. Damion said that he would follow up on this, but like myself, he had received in report that the pt wanted to go home on hospice, and if he went to a facility, it would probably be covered through his [facility] with [facility], as the option of going to his own home might not be possible for lack of assistance and caregivers.
--- NOTE | 2018-12-12 10:53 | NUR ---
Pt visit this AM. Pt reports pain in his right lower arm but is unable to rate intensity. He does report pain medication would be beneficial. Engaged in therapeutic discussion regarding discharge plan. Listened as Pt reports hopefullness of once placed in facility on hospice that he may have the chance to leave facility on hospice. Educated Pt on the goal would be for Pt to pass away in facility due to 's inability to care for him at home. Pt reports he is agreeable with this plan but would like to discuss further with when she comes to visit today. Pt reports no other concerns at this time. Reported pain and request for pain medication to bedside nurse Barbi and discussed case. Palliative Care will remain available.
--- NOTE | 2018-12-12 12:25 | NUR ---
Spoke with Damion Quesada, after he had a conversation with the pt and Neena, the pt's . States that the pt and his are both in agreement that he will be discharged to SNF on hospice.
--- NOTE | 2018-12-12 12:28 | NUR ---
Received call from bedside nurse that family is at bedside and would like a visit from palliative care. Pt resting in bed upon arrival and moderate dyspnea noted. Engaged in therapeutic conversation with Pt and family regarding goals and discharge plan. Pt is aware of 's inablilty to care for him at home and is agreeable with discharging to facility on hospice. Pt states "As long as everone knows that if I improve then I want to go home". Validated Pt's concerns and reinforced education of prognosis and likelyhood of any improvement with V/U made by Pt. Choices given for hospice agencies. Family and Pt choose [facility]. Left voice message for both health care assistant Jocelyn and [facility] Liason Anna regarding choice of hospice agency and family's request to speak with liason and health care assistant before they leave today. Spoke with bedside nurse Barbi regarding Pt and family's plan for discharge. Palliative Care will remain available.
--- NOTE | 2018-12-12 18:20 | NUR ---
NOTIFIED DR PAGAN, OF RESPIRATORY STATUS, PT ON 15L O2 VIA BAG VALVE MASK AND HF NC, SATURATIONS 82-90% AT REST, AND DIPPING TO 60-70'S WITH EXERTION OR TALKING. LS DIM T/O. PT HAS MOIST, PRODUCTIVE COUGH, USING SUCTIONING AT BEDSIDE. VANDANA, RT AT BEDSIDE. EDUCATED PT ON COMFORT CARE AND HOSPICE, PT STATES HE DOES NOT WANT TO WEAR A BIPAP OR BE INTUBATED. PT STATES HE JUST WANTS TO BE KEPT COMFORTABLE AND IS AGREEABLE TO START COMFORT CARE. NOTIFIED SILVIA, PT SPOUSE, SHE STATES TO DO WHATEVER THE PT WANTS. NOTIFIED DR EJ DR TO PLACE ORDERS FOR COMFORT CARE. WILL CONTINUE TO MONITOR.
--- NOTE | 2018-12-12 19:28 | NUR ---
SHIFT SUMMARY PT TRANSITIONED TO COMFORT CARE DURING SHIFT. PREVIOUSLY, PLANS TO DISCHARGE TO [facility] TOMORROW ON HOSPICE. PT A&Ox3, CALM AND COOPERATIVE WITH CARE. PT RESTING IN BED, ASSISTS WITH REPOSITIONING AND 2 PERSON MAX ASSIST. PT O2 SATURATIONS 84-92% ON 15L O2 VIA HIGHFLOW NC THIS AM, PT WOULD DESATURATED TO 70-80'S WITH EXERTION OR SPEECH. LS COARSE/DIM IN BASES. PRODUCTIVE COUGH, PT USING SUCTIONING. PT O2 SATURATIONS DECREASING T/O SHIFT, THIS AFTERNOON O2 SATURATIONS 82-90%, PT DENIES INCREASE OF SOB, STATES ITS THE SAME, NON-REBREATHER ADDED AT 100%, THIS AFTERNON/EVENING PT RECEIVEID 1 UNIT PRBC O2 SATURATIONS 82-86% USING 15L O2 HIGGFLOW NC AND 100% ON THE NONREBREATHER LS DIM T/O, ADDITIONAL DOSE OF LASIX GIVEN AT THE END OF TRANSFUSION PER ORDERS. PT REPORTS PAIN IN RUE AND RLE, MEDICATED x2 WITH ROXANOL WITH POSITIVE RESULTS. PT DENIES NAUSEA, POOR APPETITE RELATING TO DYSPNEA. TELE SHOWS A.FLUTTER. DISCUSSED COMFORT CARE WITH PT/SO, DR PAGAN AND PALLEATIVE CARE PER PREVIOUS NOTE. OTHER VSS. REPORT GIVEN TO ONCOMING RN.
--- NOTE | 2018-12-12 20:48 | NUR ---
ASSUMED PT CARE AT 1900 PT RESTING COMFORTABLY UPON BEDSIDE REPORT. HOWEVER, EASILY AROUSABLE. ALERT AND ABLE TO ANSWER QUESTIONS APPROPRIATELY; ABLE TO COMMUNICATE NEEDS. UTILIZES CALL LIGHT APPROPRIATELY. ADMINISTERED ROXONAL AND ATROPINE DROPS PER ORDERS D/T AIR HUNGER AND SECRETIONS. PT ABLE TO COMMUNICATE EFFECTIVENESS AND WAS EDUCATED REGARDING UTILIZING CALL LIGHT TO ASK FOR MORE IF HE FEELS SOB OR CAN'T BREATHE; PT VERBALIZED UNDERSTANDING. REPOSITIONED FOR COMFORT AND PROVIDED NORIS CARE; OFFERED ORAL CARE, BUT PT TOO SOB WITH REPOSITIONING HE WANTED TO RECOVER. WILL OFFER AGAIN DURING NEXT PT ROUNDS. PT APPEARS COMFORTABLE AT THIS TIME.
--- NOTE | 2018-12-13 04:51 | NUR ---
END OF SHIFT SUMMARY PT CONTINUES TO REQUIRE ROXONAL EVERY 1-2 HOURS; MORE FREQUENTLY TOWARD THE END OF THE SHIFT. ATROPINE DROPS GIVEN WITH EVERY ROXONAL FOR PT COMFORT. OCCASIONALLY HE WILL WAKE UP IN FEAR AND I WILL IMMEDIATELY MAKE SURE HE IS COMFORTABLE. PT HAS DECLINED REPOSITIONING; STATING HE IS COMFORTABLE. PT PREFERS TO HAVE OXYGEN PROBE ON FINGER AND FREQUENTLY ASK WHAT HIS "LEVEL" IS AT. PT HAS BEEN FLUCTUATING FROM 60-90'S ON 15L HIFLOW NC AND 15L WITH NON-REBREATHER MASK ON. PT STRUGGLED TAKING HS MEDICATIONS PER HIS REQUEST. FREQUENTLY REQUESTED MORE BITES OF APPLESAUCE JUST TO HELP PUSH THE MEDICATIONS DOWN. WAS ABLE TO GIVE PT A BITE OF PUDDING INSTEAD, WHICH INSTANTLY RELIEVED HIS FEELING OF THE MEDS BEING "STUCK". I WOULD DEFINITELY RECOMMEND EITHER CRUSHING IN APPLESAUCE OR GIVING THEM WHOLE IN PUDDING ONE AT A TIME. CALL LIGHT WITHIN REACH AND I'M SITTING AT THE NURSE CHARTING STATION OUTSIDE OF PT'S DOOR IN ORDER TO PROMPTLY RESPOND TO ANY CALLS AND/OR CONCERNS. WILL CONTINUE TO MONITOR UNTIL REPORT IS HANDED OFF TO ONCOMING RN.
--- NOTE | 2018-12-13 08:06 | NUR ---
COMFORT CARE ASSUMED CARE OF PT AT 0700. PT RESTING IN BED. REPSONDS TO VERBAL AND TACTILE STIMULI BY OPENING EYES AND ANSWERING ONE QUESTIONS BEFORE FALLING BACK ASLEEP. RESP 12-16, LS COARSE/DIM T/O, O2 SAT AT 79-86%, PT USING ACCESSORY MUSCLE, IRREGULAR AND LABORED, TO MEDICATE PER EMAR. PT DENIES PAIN AND NAUSEA. HEART SOUNDS IRREGULAR. BS HYPOACTIVE x4QUAD. PT CONTINUES TO BE EDEMATOUS T/O 3-4 PITTING EDEMA UP TO RIBS. HYPOTENSIVE. PT REFUSING ORAL CARE AND REPOSITIONING AT THIS TIME. WILL CONTINUE TO MONITOR.
--- NOTE | 2018-12-13 10:03 | NUR ---
AGONAL BREATHING NOTED FROM NURSES STATION. THIS RN TO ROOM, NO RESPIRATIONS NOTED FOR 1 MINUTE. NO HEART SOUNDS PRESENT, NO LUNG SOUNDS PRESENT. MEAGHAN VANN, RN TO ROOM TO CONFIRM. CALLED AT 0951. NOTIFIED BOILERMAKER WELDER WHO CALLED DR YOUNGBLOOD AT 0955, NURSING INTEGRATED PEST MANAGEMENT TECHNICIAN AT 0956 AND PALLEATIVE CARE AT 0958. RICHARD FROM PALLEATIVE CARE TO ROOM AT 1000, CALL TO CHARY HURTADO, CALLED SPOUSE.
--- NOTE | 2018-12-13 10:03 | NUR ---
Pt visit this AM. Pt just before this RN's arrival. Bedside nurses Yesi and Barbi report Pt peacefully. Post mordem care already provided. Spoke with tool machine set up operatorronnie Arrington and she will call family to offer support and determine home arrangements. No concerns reported at this time. Palliative Care will remain available.
--- NOTE | 2018-12-13 12:27 | NUR ---
Palliative Spiritual Care visit: T/C to spouse, Leslee at [facility]. She was tearful but appropriate. She asked me to provide prayer at bedside for Garry. I prayed with her over the phone. she selected [facility] for arrangements. Prayer said at bedside.
== END 2018-12-13 11:18 | DRG 871 ==
LOC: ER 23:08 → ERHOLD 11-25 02:49 → ICUW 11-25 02:49 → SURS 12-03 15:41 → PCU 12-07 12:27
PROVIDERS: Emergency Medicine; Family Medicine; Hospitalist; Internal Medicine; Internal Medicine Critical Care Medicine; Internal Medicine Interventional Cardiology; Pharmacist; ADMIT Internal Medicine
PROC: 0SSBXZZ Reposition Left Hip Joint, External Approach (ICD-10-PCS; principal; 2018-11-25)
PROC: 4A023N7 Measurement of Cardiac Sampling and Pressure, Left Heart, Percutaneous Approach (ICD-10-PCS; 2018-11-27)
PROC: B211YZZ Fluoroscopy of Multiple Coronary Arteries using Other Contrast (ICD-10-PCS; 2018-11-27)
PROC: 02HV33Z Insertion of Infusion Device into Superior Vena Cava, Percutaneous Approach (ICD-10-PCS; 2018-12-03)
DX: A41.9 Sepsis, unspecified organism (principal); J96.21 Acute and chronic respiratory failure with hypoxia; I50.33 Acute on chronic diastolic (congestive) heart failure; J15.212 Pneumonia due to Methicillin resistant Staphylococcus aureus; T84.011A Broken internal left hip prosthesis, initial encounter; N17.9 Acute kidney failure, unspecified; J44.0 Chronic obstructive pulmonary disease with (acute) lower respiratory infection; J44.1 Chronic obstructive pulmonary disease with (acute) exacerbation; R65.20 Severe sepsis without septic shock; I13.0 Hypertensive heart and chronic kidney disease with heart failure and stage 1 through stage 4 chronic kidney disease, or unspecified chronic kidney disease; Z51.5 Encounter for palliative care; M96.662 Fracture of femur following insertion of orthopedic implant, joint prosthesis, or bone plate, left leg; R65.10 Systemic inflammatory response syndrome (SIRS) of non-infectious origin without acute organ dysfunction; Z99.81 Dependence on supplemental oxygen; Z79.01 Long term (current) use of anticoagulants; K21.9 Gastro-esophageal reflux disease without esophagitis; G20 Parkinson's disease; E86.0 Dehydration; I35.0 Nonrheumatic aortic (valve) stenosis; I25.10 Atherosclerotic heart disease of native coronary artery without angina pectoris; N18.2 Chronic kidney disease, stage 2 (mild); I95.9 Hypotension, unspecified; I73.9 Peripheral vascular disease, unspecified; K70.30 Alcoholic cirrhosis of liver without ascites; I48.0 Paroxysmal atrial fibrillation
CPT/HCPCS: 0097U; 36415; 36430; 36569; 36600; 51702; 70450; 71045; 71046; 72170; 72192; 73552; 80048; 80053; 80061; 80069; 80202; 81001; 82270; 82565; 82803; 83605; 83735; 83880; 84145; 84484; 85014; 85018; 85025; 85027; 86850; 86870; 86900; 86901; 86902; 86920; 86922; 87040; 87070; 87077; 87081; 87086; 87147; 87186; 87205; 87486; 87581; 87633; 87798; 93005; 93010; 93306; 93458; 93922; 94640; 94660; 94760; 94762; 96361; 96365; 96375; 97110; 97163; 97166; 97530; 99152; 99153; 99285-25; A9270; C1751; C1760; C1769; C1894; J0696; J1650; J1885; J1940; J1956; J2250; J2310; J2370; J2543; J2704; J3010; J3370; J3475; J7030; J7050; P9016; Q9967